=== PATIENT | male | born 1955 | race Asian ===

== ENCOUNTER 2024-12-24 18:37 | Emergency (ER) | payer MEDICARE, SELFPAY ==
[2024-12-24 18:39] VITALS: BP 155/92; PULSE 90; RESP 18; TEMP 36.5; O2SAT 99; BMI 21.6
--- NOTE | 2024-12-24 19:01 | EDS_ITS ---
HPI History of Present Illness Chief Complaint: Complaint Narrative Narrative: Patient is a 69-year-old male presenting emergency department for urinary retention. 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 Patient and daughter feel comfortable with daughter translating for him. Patient was recently started on prednisone for his knee per daughter. His last normal urination was yesterday in the late afternoon. After he took the prednisone he could not urinate other than a few dribbles. States that he is having suprapubic discomfort. Denies this ever happening in the past. Denies fever, chills, nausea, vomiting. When he was urinating normally he had no dysuria or hematuria. PFSH PFSH Home Medications ?Medication ?Instructions ?Recorded ?Last Taken ?Type naproxen 500 mg tablet 500 mg PO BID PRN PRN pain 0 12/24/24 Unknown History prednisone 10 mg tablet mg PO 12/24/24 Unknown Histo ry Allergy/AdvReac Type Severity Reaction Status Date / Time No Known Allergies Allergy Verified 12/24/24 18:39 Social History Smoking Status: Never smoker ROS ROS ED ROS Narrative see HPI EXAM Physical Exam Narrative Exam Narrative: Vital signs: Reviewed General: Alert and oriented. No acute distress HEENT: Head is normocephalic and atraumatic, sinuses nontender, pupils equal round and reactive. Nares are patent. Oropharynx and throat exams normal. Neck: Supple without lymphadenopathy nontender Cardiovascular: Regular rate and rhythm, no murmurs. No rubs or gallops. Normal S1 and S2 Respiratory: Clear to auscultation bilaterally. No wheezes, rales, rhonchi Abdominal: Suprapubic fullness felt, tender over this area. Otherwise, soft and nontender. Normal bowel sounds. No guarding or rebound. Nonsurgical abdomen Extremities: No tenderness. No bruising. Normal range of motion. Normal sensation. Skin: No rash or redness. Neurological: Cranial nerves II through XII are grossly intact. Normal strength and sensation. Normal cerebellar function The rest of the physical exam is unremarkable Const Vital Signs: 12/24/24 18:39 12/24/24 21:21 Temperature 97.7 F L 97 F L Temperature Source Temporal Pulse Rate 90 84 Respiratory Rate 18 18 Blood Pressure 155/92 H 142/80 H Blood Pressure Mean 113 100 Pulse Ox 99 99 Oxygen Delivery Method Room Air MDM MDM MDM Narrative Medical decision making narrative: Patient is a 69-year-old male presenting to emergency department for urinary retention. Patient was seen and examined. Vitals are stable. Patient resting bed comfortably in acute distress. Bladder scan was done by nursing staff, shows 650 ml. Discussed Ascencio catheter placement with patient. He is agreeable. This was placed by nursing staff. Urinalysis ordered, shows no evidence of infection. Patient likely had retention secondary to the prednisone use. He states he was taking this for some knee pain. He does not have any back pain, bowel retention or incontinence, numbness or weakness in his legs, fevers or chills. I recommended that he stop the prednisone. I gave him urology follow-up given the urinary retention and Ascencio catheter placement. Patient discharged from the Emergency Department. I do not feel that the patient's evaluation reveals any acute reason for admission at this time. I instructed them to either follow-up with their primary care physician or promptly return to the Emergency Department for reevaluation should symptoms worsen or new symptoms develop. I explained what symptoms would indicate the need to return to the emergency department. Shared decision making was used. The patient voiced understanding of the treatment plan and is agreeable with it. Clinical impression: Urinary retention History & Record Review Discussion w/independent historian: Patient and Family Lab Data Attestation: I reviewed the patient's lab results. Labs: Laboratory Results - last 24 hr 12/24/24 20:12 Urine Color Yellow Urine Clarity Clear Urine pH 6.5 Ur Specific [place] 1.015 Urine Protein 30 H Urine Glucose (UA) 50 H Urine Ketones Negative Urine Occult Blood 10 H Urine Nitrite Negative Urine Bilirubin Negative Urine Urobilinogen Normal Ur Leukocyte Esterase Negative Urine RBC 0-5 SEEN Urine WBC 0-5 SEEN Ur Squamous Epith Cells 0-5 SEEN Urine Bacteria 0 SEEN Urine Mucus 0 SEEN Discharge Plan Triage Chief Complaint: Complaint ED Provider: Geraldine Viera Dx/Rx/DC Orders Clinical Impression: Acute urinary retention Instructions: Leg Bag Care Dc, Ascencio Catheter Male Ch, ED Ascencio Catheter, Care Prescriptions: No Action prednisone 10 mg tablet PO naproxen 500 mg tablet 500 mg PO BID PRN PRN (Reason: pain) Primary Care Provider: Care Physician,No Primary Referrals: Sohan Rm MD [Med Staff - Active Staff] - 2 Days Care Physician,No Primary [Primary Care Provider] - Activity Restrictions/Additional Instructions: Follow up with the urologist below as soon as possible for the urinary retention. Stop taking the prednisone for your knee. Your evaluation in the Emergency Department did not reveal any acute reason for admission. However, I want to emphasize that you may be early in the course of a disease process or illness even if it is not present. For this reason you should follow-up within 24 hours for reevaluation with either your primary care physician or if necessary back here in the Emergency Department. You should return to the Emergency Department immediately if your symptoms worsen or new symptoms develop. Print Language: Congolese Disposition Disposition: Home, Self Care Discharge Date/Time: 12/24/24 21:28
[2024-12-24 20:34] LABS: Mucous, Urine 0 SEEN /hpf (<or=2+)
[2024-12-24 20:44] LABS: Color, Urine Yellow (Yellow); Glucose, Dipstick 50 mg/dl (Normal); Ketone-Dipstick Negative (Negative); Leukocyte Esterase-Dipstick Negative /ul (Negative); Nitrite-Dipstick Negative (Negative); Occult Blood-Urine 10 /ul (Negative); Protein-Dipstick 30 mg/dl (Negative); Specific Gravity, Urine 1.015 (1.002-1.030); Urine Bilirubin Dipstick Negative (Negative)
[2024-12-24 21:21] VITALS: BP 142/80; PULSE 84; RESP 18; TEMP 36.1; O2SAT 99
[2024-12-24 22:04] LABS: Red Blood Cells-Urine 0-5 SEEN /hpf (0-5); Squamous Epithelial Cells - UA 0-5 SEEN /hpf (0-5)
== END 2024-12-24 21:28 | disposition home or self-care (01) ==
PROVIDERS: Emergency Provider Student in an Organized Health Care Education/Training Program; Visit Provider Student in an Organized Health Care Education/Training Program
DX: R33.0 Drug induced retention of urine (principal); T38.0X5A Adverse effect of glucocorticoids and synthetic analogues, initial encounter
CPT/HCPCS: 51702; 81001; 99283

== ENCOUNTER 2024-12-27 19:52 | Emergency (ER) | payer MEDICARE, SELFPAY ==
[2024-12-27 19:52] VITALS: BP 171/103; PULSE 93; RESP 18; TEMP 36.6; O2SAT 98; BMI 20.9
--- OUTSIDE RECORDS SUMMARY | 2024-12-27 21:11 | XMS RPT_ITS | CCD ---
Author Organization [facility] Inform ion Partnership [facility] Care Team Providers [employer] Supervisor Name Role Phone Luisa Buchanan MD Primary Care Provider Daniel Coleman APRN.CNP Unavailable [phone] Dr. Geraldine Viera MD Emergency Provider Unavailab le Care Physician, No Primary Primary Care Provider Unavailable RENA KAY Referring Unavailable DEANGELO BARLOW Attending Unavailable LUISA BUCHANAN Primary Care Unavailable DEANGELO BARLOW Referring Unavailable LUISA BUCHANAN Primary Care Unavailable LUISA BUCHANAN Primary Care Unavailable EZEQUIEL HERNANDEZ Attending Unavailable RENA KAY Attending Unavailable RENA KYA Referring Unavailable Geraldine Viera Attending Unavailable Care Physician, No Primary Primary Care Unava ilable Medications Current Medications Medication Drug Class(es) Dates Sig (Normalized) Sig (Original) naproxen 500 mg oral tablet (4 sources) Nonsteroidal Anti-inflammatory Drug Start: 12-16-2024 take 1 tablet by mouth twice daily as needed for pain naproxen (NAPROSYN) 500 mg tablet Indications: Bilateral chronic knee pain , Chronic pain of both shoulders Take 1 tablet by mouth two times a day as needed (FOR PAIN - TAKE WITH FOOD.) for up to 20 doses. 20 tablet 12/16/2024 Active predniSONE 10 mg oral tablet (4 sources) Start: 12-24-2024 Prednisone 10 mg tablet Active mg PO December 24, 2024 12:00am Start: 12-23-2024 End: 01-07-2025 predniSONE (DELTASONE) 10 mg tablet Take 4 tabs daily x5 days, then 2 tabs daily for 5 days, then 1 tab daily for 5 days. 35 tablet 12/23/2024 01/07/2025 Active Problems Active Problems Problem Classification Problem Date Documented Date Episodic/Chronic Cataract (3 sources) Senile combined form cataract of right eye; Translations: [Combined forms of age-related cataract, right eye] Onset: 01-28-2021 01-28-2021 Chronic Genitourinary symptoms and ill-defined conditions (3 sources) Acute retention of urine ; Translations: [Other retention of urine] Onset: 12-24-2024 12-24-2024 Episodic Inflammation; infection of eye (except that caused by tuberculosis or sexually transmitteddisease) (3 sources) Bilateral punctate keratitis of eyes; Translations: [Punctate keratitis, bilateral] Onset: 01-28-2021 01-28-2021 Chronic Osteoarthritis (4 sources) Osteoarthritis of left knee joint; Translations: [Unilateral primary osteoarthritis, left knee] Onset: 12-23-2024 12-23-2024 Chronic Other eye disorders (3 sources) Optic cupping; Translations: [Glaucomatous optic atrophy, bilateral] Onset: 01-28-2021 01-28-2021 Chronic Other nervous system disorders (3 sources) Other chronic pain; Translations: [Chronic left shoulder pain] Onset: 12-16-2024 Chronic Other non-traumatic joint disorders (1 source) Multiple joint pain; Translations: [Pain in unspecified joint] 12-23-2024 Episodic Other non-traumatic joint disorders (1 source) Chronic pain of left upper limb; Translations: [Pain in left shoulder] 12-23-2024 Episodic Other non-traumatic joint disorders (1 source) Swelling of upper limb; Translations: [Effusion, left wrist] 12-23-2024 Episodic Other non-traumatic joint disorders (1 source) Pain in unspecified joint; Translations: [Polyarthralgia] Onset: 12-23-2024 Episodic Other non-traumatic joint disorders (2 sources) Pain in left shoulder; Translations: [Chronic left shoulder pain] Onset: 12-16-2024 Episodic Other non-traumatic joint disorders (1 source) Effusion, left wrist; Translations: [Swelling of left wrist] Onset: 12-23-2024 Episodic Other non-traumatic joint disorders (1 source) Pain in right knee; Translations: [Bilateral chronic knee pain] Onset: 12-16-2024 Episodic Other non-traumatic joint disorders (1 source) Pain in left knee; Translations: [Bilateral chronic knee pain] Onset: 12-16-2024 Episodic Other non-traumatic joint disorders (1 source) Pain in right shoulder; Translations: [Chronic pain of both shoulders] Onset: 12-16-2024 Episodic Past or Other Problems Problem Classification Problem Date Documented Da te Episodic/Chronic Other eye disorders (3 sources) H/O: L cataract extraction; Translations: [Cataract extraction status, left eye] Onset: 01-28-2021 01-28-2021 Episodic Results Test Name Value Interpretation Reference Range Facility Bilirubin Test strip Ql (U)O rdered By: Geraldine Viera on 12-24-2024 Bilirubin Ql (U) Negative Negative [facility] CNOVon 12-24-2024 CNOV Office Visit ([facility]) ----- RASHEL HAYDEN ([id number]) 1955 [facility] Date Time Provider Department 12/24/24 6:30 PM EZEQUIEL HERNANDEZ During your visit today, we recorded the following information about you: Ezequiel Hernandez PA-C 12/24/2024 6:40 PM Signed [facility] Subjective Rashel Hayden is a 69 year old male. No chief complaint on file. HPI Oliguria: - Onset last night after taking a new medication. - Nocturia with minimal urine output around 0200 and 0400. - Minimal urine output during three attempts today. - Denies previous episodes or history of urethral stricture. - Denies emesis or cough. - Reports throat discomfort. Patient's Czech is limited. Per his daughter, he began taking prednisone last night as prescribed. He was unable to urinate except for a few drops last night and throughout the day today. Patient presents with moderate bladder distention and discomfort at this time. Review of Systems Ears/Nose/Mouth/Throat: (+) throat pain Respiratory: (-) cough Gastrointestinal: (-) vomiting Genitourinary: (+) decreased urine output Objective There were no vitals taken for this visit. Physical Exam General: No acute distress. CV: Regular rate and rhythm. Resp: Lungs clear to auscultation bilaterally. Abd: Bowel sounds present; bladder distention noted on palpation. 1. Urinary retention (R33.9) - Acute urinary retention following administration of a new medication last night; no prior history of urinary retention or urethral stricture. - Exam notable for bladder distention. - Advised immediate transfer to the emergency department for catheterization and bladder decompression. - Instructed to discontinue the recently started medication. - Explained that this condition is generally reversible and may be related to medication-induced urethral spasm. - Discussed likely need for urology follow-up after ED management. - Stop taking the medication you received last night that likely caused your urine retention. - Go to the emergency department immediately for a urinary catheter to drain your bladder. - After bladder drainage, arrange a follow-up appointment with a urologist to evaluate your urinary retention and plan further care. I have advised this patient and his daughter to proceed to the emergency department immediately. MDM Procedures Allergies As of Date: 12/24/2024 (Not on File) Date Reviewed: 12/23/2024 Reviewed by: Dominga Izaguirre MA - Fully Assessed Visit Diagnosis:Urinary retention [R33.9] Prescriptions as of 12/24/2024 - predniSONE (DELTASONE) 10 mg tablet Take 4 tabs daily x5 days, then 2 tabs daily for 5 days, then 1 tab daily for 5 days. - naproxen (NAPROSYN) 500 mg tablet Take 1 tablet by mouth two times a day as needed (FOR PAIN - TAKE WITH FOOD.) for up to 20 doses. 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] 01/28/2021 Punctate keratitis of both eyes [H16.143] 01/28/2021 Level of Service: OFFICE/OUTPATIENT ESTABLISHED [facility] 30 MIN [90403] Encounter Status:Closed by EZEQUIEL HERNANDEZ on 12/24/24 [facility] Emergency Department Summary on 12-24-2024 Emergency Department Summary [facility] Medical Records Department [address] [place] [address] Emergency Department Summary 12/24/24 MR#: [id number] Acct: [id number] Name: RASHEL HAYDEN Rep #: [id number] : 1955 69 From: Geraldine Viera MD PCP: Care Physician,No Primary Status:DEP ER Location: ED HPI History of Present Illness Chief Complaint: Complaint Narrative Narrative: Patient is a 69-year-old male presenting emergency department for urinary retention. He is non- Czech speaking, wallpaper scraper was offered. Patient and daughter feel comfortable with daughter translating for him. Patient was recently started on prednisone for his knee per daughter. His last normal urination was yesterday in the late afternoon. After he took the prednisone he could not urinate other than a few dribbles. States that he is having suprapubic discomfort. Denies this ever happening in the past. Denies fever, chills, nausea, vomiting. When he was urinating normally he had no dysuria or hematuria. PFSH PFSH Home Medications ???Medication ???Instructions ???Recorded ???Last Taken ???Type naproxen 500 mg tablet 500 mg PO BID PRN PRN pain 5 Unknown History prednisone 10 mg tablet mg PO 12/24/24 Unknown History Allergy/AdvReac Type Severity Reaction Status Date / Time No Known Allergies Allergy Verified 12/24/24 18:39 Social History Smoking Status: Never smoker ROS ROS ED ROS Narrative see HPI EXAM Physical Exam Narrative Exam Narrative: Vital signs: Reviewed General: Alert and oriented. No acute distress HEENT: Head is normocephalic and atraumatic, sinuses nontender, pupils equal round and reactive. Nares are patent. Oropharynx and throat exams normal. Neck: Supple without lymphadenopathy nontender Cardiovascular: Regular rate and rhythm, no murmurs. No rubs or gallops. Normal S1 and S2 Respiratory: Clear to auscultation bilaterally. No wheezes, rales, rhonchi Abdominal: Suprapubic fullness felt, tender over this area. Otherwise, soft and nontender. Normal bowel sounds. No guarding or rebound. Nonsurgical abdomen Extremities: No tenderness. No bruising. Normal range of motion. Normal sensation. Skin: No rash or redness. Neurological: Cranial nerves II through XII are grossly intact. Normal strength and sensation. Normal cerebellar function The rest of the physical exam is unremarkable Const Vital Signs: 12/24/24 18:39 12/24/24 21:21 Temperature 97.7 F L 97 F L Temperature Source Temporal Pulse Rate 90 84 Respiratory Rate 18 18 Blood Pressure 155/92 H 142/80 H Blood Pressure Mean 113 100 Pulse Ox 99 99 Oxygen Delivery Method Room Air MDM MDM MDM Narrative Medical decision making narrative: Patient is a 69-year-old male presenting to emergency department for urinary retention. Patient was seen and examined. Vitals are stable. Patient resting bed comfortably in acute distress. Bladder scan was done by nursing staff, shows 650 ml. Discussed Ascencio catheter placement with patient. He is agreeable. This was placed by nursing staff. Urinalysis ordered, shows no evidence of infection. Patient likely had retention secondary to the prednisone use. He states he was taking this for some knee pain. He does not have any back pain, bowel retention or incontinence, numbness or weakness in his legs, fevers or chills. I recommended that he stop the prednisone. I gave him urology follow-up given the urinary retention and Ascencio catheter placement. Patient discharged from the Emergency Department. I do not feel that the patient's evaluation reveals any acute reason for admission at this time. I instructed them to either follow-up with their primary care physician or promptly return to the Emergency Department for reevaluation should symptoms worsen or new symptoms develop. I explained what symptoms would indicate the need to return to the emergency department. Shared decision making was used. The patient voiced understanding of the treatment plan and is agreeable with it. Clinical impression: Urinary retention History Record Review Discussion w/independent historian: Patient and Family Lab Data Attestation: I reviewed the patient's lab results. Labs: Laboratory Results - last 24 hr 12/24/24 20:12 Urine Color Yellow Urine Clarity Clear Urine pH 6.5 Ur Specific [place] 1.015 Urine Protein 30 H Urine Glucose (UA) 50 H Urine Ketones Negative Urine Occult Blood 10 H Urine Nitrite Negative Urine Bilirubin Negative Urine Urobilinogen Normal Ur Leukocyte Esterase Negative Urine RBC 0-5 SEEN Urine WBC 0-5 SEEN Ur Squamous Epith Cells 0-5 SEEN Urine Bacteria 0 SEEN Urine Mucus 0 SEEN Discharge Plan Triage Chief Complain (more content not included)... Normal [facility] Ketones Test strip Ql (U)Ord ered By: Geraldine Viera on 12-24-2024 Ketones Ql (U) Negative Negative [facility] Nitrite Test strip Ql (U)Ord ered By: Geraldine Viera on 12-24-2024 Nitrite Ql (U) Negative Negative [facility] Protein Test strip Ql (U)Ord ered By: Geraldine Viera on 12-24-2024 Protein Ql (U) 30 mg/dl High Negative [facility] Urinalysis, Completeon 12-24 EPI,SQUAMOUS 0-5 SEEN Normal 0-5 [facility] Comment on above: Order Comment: SKY CTOR TO SPECIFY Performed By: #### L 400.0001 #### [facility] [address] [place], [address] RBC 0-5 SEEN Normal 0-5 [facility] Comment on above: Order Comment: SKY CTOR TO SPECIFY Performed By: #### L 400.0001 #### [facility] [address] [place], [address] WBC 0-5 SEEN Normal 0-5 [facility] Comment on above: Order Comment: SYK CTOR TO SPECIFY Performed By: #### L 400.0001 #### [facility] [address] [place], [address] BACTERIA 0 SEEN Normal None Seen [facility] Comment on above: Order Comment: SKY CTOR TO SPECIFY Performed By: #### L 400.0001 #### [facility] [address] [place], [address] Mucus Ql (Urine sed) 0 SEEN Normal [facility] Comment on above: Order Comment: SKY CTOR TO SPECIFY Performed By: #### L 400.0001 #### [facility] [address] [place], [address] Urine clarityOrdered By: Sue Viera on 12-24-2024 Clarity (U) Clear Clear [facility] Urine color determinationOrd ered By: Geraldine Viera on 12-24-2024 Color (U) Yellow Yellow [facility] Urine glucose detectionOrder ed By: Geraldine Viera on 12-24-2024 Glucose Ql (U) 50 mg/dl High Normal [facility] Urine leukocyte esterase det ection by dipstickOrdered By: Geraldine Viera on 12-24-2024 Leukocyte esterase Test strip Ql (U) Negative Negative [facility] Urine pHOrdered By: Geraldine schultz on 12-24-2024 pH (U) 6.5 [pH] 5.0 - 8.0 [facility] Urine specific gravity measu rementOrdered By: Geraldine Viera on 12-24-2024 Specific gravity (U) [Rel density] 1.015 1.002-1.030 [facility] Urine urobilinogen measureme ntOrdered By: Geraldine Viera on 12-24-2024 Urobilinogen Ql (U) Normal mg/dl Normal [facility] CBC W Auto Differential pane l (Bld)on 12-23-2024 Basophils (Bld) [#/Vol] [facility] Basophils/100 WBC (Bld) 0.3 % C [facility] Differential cell count method Nom (Bld) Auto [facility] Eosinophils (Bld) [#/Vol] 0.89 10*3/uL High [facility] Eosinophils/100 WBC (Bld) 14.1 % [facility] Erythrocyte distribution width (RBC) [Ratio] 12.7 % 11.5 - 15.0 % [facility] Hematocrit (Bld) [Volume fraction] 37.6 % Low 39.0 - 51.0 % [facility] Hemoglobin (Bld) [Mass/Vol] 13.0 g/dL 13.0 - 17.0 g/dL [facility] Immature granulocytes (Bld) [#/Vol] 0.04 10*3/uL [facility] Immature granulocytes/100 WBC (Bld) 0.6 % [facility] Interpretation and review of laboratory results Abnormal [facility] Lymphocytes (Bld) [#/Vol] 0.93 10*3/uL Low [facility] Lymphocytes/100 WBC (Bld) 14.7 % [facility] MCH (RBC) [Entitic mass] 31.6 pg 26.0 - 34.0 pg [facility] MCHC (RBC) [Mass/Vol] 34.6 g/dL 30.5 - 36.0 g/dL [facility] MCV (RBC) [Entitic vol] 91.3 fL 80.0 - 100.0 fL [facility] Monocytes (Bld) [#/Vol] 0.41 10*3/uL [facility] Monocytes/100 WBC (Bld) 6.5 % [facility] Neutrophils (Bld) [#/Vol] 4.03 10*3/uL [facility] Neutrophils/100 WBC (Bld) 63.8 % [facility] Nucleated RBC (Bld) [#/Vol] NINF [facility] Nucleated RBC/100 WBC (Bld) [Ratio] 0.0 % /100 WBC [facility] Platelet mean volume (Bld) [Entitic vol] 8.4 fL Low 9.0 - 12.7 fL [facility] Platelets (Bld) [#/Vol] 290 10*3/uL [facility] RBC (Bld) [#/Vol] 4.12 10*6/uL Low 4.20 - 6.0 0 m/uL [facility] WBC (Bld) [#/Vol] 6.32 10*3/uL [facility] Basophils (Bld) [#/Vol] 10*3/uL Normal <0.11 [facility] Comment on above: Order Comment: Speci men Type: BLOOD SPECIMEN Ordering Facility: [facility] Address: [address] [place] [address] Performed By: #### 5 7021-8 #### [facility] CLIA [id number] [address] [place] [address] [place] Basophils/100 WBC (Bld) 0.3 % Normal [facility] Comment on above: Order Comment: Speci men Type: BLOOD SPECIMEN Ordering Facility: [facility] Address: [address] [place] [address] Performed By: #### 5 7021-8 #### [facility] CLIA [id number] [address] [place] [address] [place] Differential cell count method Nom (Bld) Auto Normal [facility] Comment on above: Order Comment: Speci men Type: BLOOD SPECIMEN Ordering Facility: [facility] Address: [address] [place] [address] Performed By: #### 5 7021-8 #### [facility] CLIA [id number] [address] [place] [address] [place] Eosinophils (Bld) [#/Vol] 0.89 10*3/uL High <0.46 [facility] Comment on above: Order Comment: Speci men Type: BLOOD SPECIMEN Ordering Facility: [facility] Address: [address] [place] [address] Performed By: #### 5 7021-8 #### [facility] CLIA [id number] [address] [place] [address] [place] Eosinophils/100 WBC (Bld) 14.1 % Normal [facility] Comment on above: Order Comment: Speci men Type: BLOOD SPECIMEN Ordering Facility: [facility] Address: [address] [place] [address] Performed By: #### 5 7021-8 #### [facility] CLIA [id number] [address] [place] [address] [place] Erythrocyte distribution width (RBC) [Ratio] 12.7 % Normal 11.5-15.0 [facility] Comment on above: Order Comment: Speci men Type: BLOOD SPECIMEN Ordering Facility: [facility] Address: [address] [place] [address] Performed By: #### 5 7021-8 #### [facility] CLIA [id number] [address] [place] [address] [place] Hematocrit (Bld) [Volume fraction] 37.6 % Low 39.0-51.0 [facility] Comment on above: Order Comment: Speci men Type: BLOOD SPECIMEN Ordering Facility: [facility] Address: [address] [place] [address] Performed By: #### 5 7021-8 #### [facility] CLIA [id number] [address] [place] [address] [place] Hemoglobin (Bld) [Mass/Vol] 13.0 g/dL Normal 13.0-17.0 [facility] Comment on above: Order Comment: Speci men Type: BLOOD SPECIMEN Ordering Facility: [facility] Address: [address] [place], [place] [address] Performed By: #### 5 7021-8 #### [facility] CLIA [id number] [address] [place] [address] [place] Immature granulocytes (Bld) [#/Vol] 0.04 10*3/uL Normal <0.10 [facility] Comment on above: Order Comment: Speci men Type: BLOOD SPECIMEN Ordering Facility: [facility] Address: [address] [place], [place] [address] Performed By: #### 5 7021-8 #### [facility] CLIA [id number] [address] [place] [address] [place] Immature granulocytes/100 WBC (Bld) 0.6 % Normal [facility] Comment on above: Order Comment: Speci men Type: BLOOD SPECIMEN Ordering Facility: [facility] Address: [address] [place] [address] Performed By: #### 5 7021-8 #### [facility] CLIA [id number] [address] [place] [address] [place] Lymphocytes (Bld) [#/Vol] 0.93 10*3/uL Low 1.00-4.00 [facility] Comment on above: Order Comment: Speci men Type: BLOOD SPECIMEN Ordering Facility: [facility] Address: [address] [place] [address] Performed By: #### 5 7021-8 #### [facility] CLIA [id number] [address] [place] [address] [place] Lymphocytes/100 WBC (Bld) 14.7 % Normal [facility] Comment on above: Order Comment: Speci men Type: BLOOD SPECIMEN Ordering Facility: [facility] Address: [address] [place] [address] Performed By: #### 5 7021-8 #### [facility] CLIA [id number] [address] [place] [address] [place] MCH (RBC) [Entitic mass] 31.6 pg Normal 26.0-34.0 [facility] Comment on above: Order Comment: Speci men Type: BLOOD SPECIMEN Ordering Facility: [facility] Address: [address] [place] [address] Performed By: #### 5 7021-8 #### [facility] CLIA [id number] [address] [place] [address] [place] MCHC (RBC) [Mass/Vol] 34.6 g/dL Normal 30.5-36.0 [facility] Comment on above: Order Comment: Speci men Type: BLOOD SPECIMEN Ordering Facility: [facility] Address: [address] [place] [address] Performed By: #### 5 7021-8 #### [facility] CLIA [id number] [address] [place] [address] [place] MCV (RBC) [Entitic vol] 91.3 fL Normal 80.0-100.0 C [facility] Comment on above: Order Comment: Speci men Type: BLOOD SPECIMEN Ordering Facility: [facility] Address: [address] [place] [address] Performed By: #### 5 7021-8 #### [facility] CLIA [id number] [address] [place] [address] [place] Monocytes (Bld) [#/Vol] 0.41 10*3/uL Normal <0.87 [facility] Comment on above: Order Comment: Speci men Type: BLOOD SPECIMEN Ordering Facility: [facility] Address: [address] [place] [address] Performed By: #### 5 7021-8 #### [facility] CLIA [id number] [address] [place] [address] [place] Monocytes/100 WBC (Bld) 6.5 % Normal [facility] Comment on above: Order Comment: Speci men Type: BLOOD SPECIMEN Ordering Facility: [facility] Address: [address] [place] [id number] Performed By: #### 5 7021-8 #### [facility] CLIA [id number] [address] [place] [address] [place] Neutrophils (Bld) [#/Vol] 4.03 10*3/uL Normal 1.45-7.50 [facility] Comment on above: Order Comment: Speci men Type: BLOOD SPECIMEN Ordering Facility: [facility] Address: [address] [place] [address] Performed By: #### 5 7021-8 #### [facility] CLIA [id number] [address] [place] [address] [place] Neutrophils/100 WBC (Bld) 63.8 % Normal [facility] Comment on above: Order Comment: Speci men Type: BLOOD SPECIMEN Ordering Facility: [facility] Address: [address] [place] [address] Performed By: #### 5 7021-8 #### [facility] CLIA [id number] [address] [place] [address] [place] Nucleated RBC (Bld) [#/Vol] 10*3/uL Normal <0.01 [facility] Comment on above: Order Comment: Speci men Type: BLOOD SPECIMEN Ordering Facility: [facility] Address: [address] [place] [address] Performed By: #### 5 7021-8 #### [facility] CLIA [id number] [address] [place] [address] [place] Nucleated RBC/100 WBC (Bld) [Ratio] 0.0 /100 WBC Normal [facility] Comment on above: Order Comment: Speci men Type: BLOOD SPECIMEN Ordering Facility: [facility] Address: [address] [place] [address] Performed By: #### 5 7021-8 #### [facility] CLIA [id number] [address] [place] [address] [place] Platelet mean volume (Bld) [Entitic vol] 8.4 fL Low 9.0-12.7 [facility] Comment on above: Order Comment: Speci men Type: BLOOD SPECIMEN Ordering Facility: [facility] Address: [address] [place] [address] Performed By: #### 5 7021-8 #### [facility] [id number] [address] [place] [address] [place] Platelets (Bld) [#/Vol] 290 10*3/uL Normal 150-400 [facility] Comment on above: Order Comment: Speci men Type: BLOOD SPECIMEN Ordering Facility: [facility] Address: [address] [place] [address] Performed By: #### 5 7021-8 #### [facility] [id number] [address] [place] [address] [place] RBC (Bld) [#/Vol] 4.12 10*6/uL Low 4.20-6.00 [facility] Comment on above: Order Comment: Speci men Type: BLOOD SPECIMEN Ordering Facility: [facility] Address: [address] [place] [address] Performed By: #### 5 7021-8 #### [facility] CLIA [id number] [address] [place] [address] [place] WBC (Bld) [#/Vol] 6.32 10*3/uL Normal 3.70-11.00 [facility] Comment on above: Order Comment: Speci men Type: BLOOD SPECIMEN Ordering Facility: [facility] Address: [address] [place] [address] Performed By: #### 5 7021-8 #### [facility] CLIA [id number] [address] [place], [place] [id number] [place] [address] OF [facility] CNOVon 12-23-2024 CNOV Office Visit (FRFHWS ) ----- RASHEL HAYDEN ([id number]) 1955 M [facility] Date Time Provider Department 12/23/24 2:00 PM DEANGELO DUNN V [facility] During your visit today, we recorded the following information about you: Dominga Izaguirre MA 12/23/2024 2:29 PM Signed Patient presents with: Bilateral Knee Pain: Referred by Rena Kay [facility] ROOMING INTAKE FLOWSHEET DATA Pain Pain Level: 10 Pain Location: (Bilateral knees) Description: Radiating Duration Amount of Time: 2 Duration Units: Months Frequency: Continuous Intervention/Comfort measure: Medication Daughter with patient today and interpreting. Deangelo Dunn V, DO 12/23/2024 2:29 PM Signed Subjective The patient is a 69-year-old male, accompanied by his daughter who is providing history on his behalf, presenting for evaluation of chronic knee pain. Knee Pain: - Chronic knee pain x3-4 years, previously mild but significantly worsened in the last month. - Pain is diffuse, described as all around the knee and radiating down the leg. - Recent swelling noted in the knee. - X-ray showed some arthritis, but no fractures or dislocations. - Denies known trauma. Polyarthralgia: - Reports pain in shoulders, wrists, and ribs. - Notable swelling in the left wrist. - Left hand weakness, difficulty holding objects. - Limited mobility; primarily sedentary, with minimal walking. Musculoskeletal: (+) knee pain, (+) knee swelling, (+) left wrist pain, (+) left wrist swelling, (+) shoulder pain, (+) left hand weakness Objective There were no vitals taken for this visit. General: No acute distress. MSK/Ext: Left wrist swelling, left wrist weakness, bilateral knee pain, mild knee pain with lateral Kee test, no pain with Joel test, crepitus in knee joint, left knee swelling, left knee swelling greater than right knee, left knee tenderness, left knee joint stable, no knee joint warmth. Imaging: - X-ray of the knee: Mild degenerative changes consistent with arthritis, no fracture or dislocation. Assessment AND Plan 1. Polyarthralgia (M25.50) 2. Primary osteoarthritis of left knee (M17.12) 3. Chronic left shoulder pain (M25.512) 4. Swelling of left wrist (M25.432) 5. Generalized osteoarthritis (M15.9) - Chronic knee pain with recent worsening; X-ray shows mild arthritis, but not sufficient to explain severity of symptoms. - Multiple joint involvement (shoulders, wrists, knees, ankles) with swelling and pain; left wrist swelling more pronounced than right. - Differential includes inflammatory arthritis such as rheumatoid arthritis. - Ordered blood tests to evaluate for systemic inflammatory arthritis. - Start prednisone: 4 tablets daily for 5 days, then 2 tablets daily for 5 days, then 1 tablet daily for 5 days. - Educated on prednisone taper schedule and its role in reducing inflammation and swelling while awaiting lab results. - Encouraged increased physical activity and walking as tolerated. - Will call with lab results when available. Recording using [employer] software for draft documentation of the visit was discussed with the patient/authorized employee representative; all questions welcomed and answered. Patient/authorized employee representative agreed to proceed Referring Provider: RENA KAY [[id number]] Allergies As of Date: 12/23/2024 (Not on File) Date Reviewed: 12/23/2024 Reviewed by: Dominga Izaguirre MA - Fully Assessed Reason for Visit: Bilateral Knee Pain [1210] Cmt: Referred by Rena Kay Primary Visit Diagnosis:Polyarthralgia [M25.50] Other Visit Diagnoses:Primary osteoarthritis of left knee [M17.12] Chronic left shoulder pain [M25.512, G89.29] Swelling of left wrist [M25.432] Generalized osteoarthritis [M15.9] Order(s):CONSULT PANEL TO ORTHOPAEDICS [437497] Order #: [id number]: 1 COMPLETE BLOOD COUNT AND DIFFERENTIAL [SQCBCDIF] Order #: [id number] FUTURE SEDIMENTATION RATE, WESTERGREN [SQWSR] Order #: [id number] FUTURE C-REACTIVE PROTEIN [SQCRP] Order #: [id number] FUTURE KIERAN BLOOD [SQANAS] Order #: [id number] FUTURE RHEUMATOID FACTOR [SQRF] Order #: [id number] FUTURE COMPREHENSIVE METABOLIC PANEL [SQCMP] Order #: [id number] FUTURE predniSONE (DELTASONE) 10 mg tabletTake 4 tabs daily x5 days, then 2 tabs daily for 5 days, then 1 tab daily for 5 days.Disp: 35 tabletRfl: 0 Prescriptions as of 12/23/2024 - predniSONE (DELTASONE) 10 mg tablet Take 4 tabs daily x5 days, then 2 tabs daily for 5 days, then 1 tab daily for 5 days. - naproxen (NAPROSYN) 500 mg tablet Take 1 tablet by mouth two times a day as needed (FOR PAIN - TAKE WITH FOOD.) for up to 20 doses. 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 Normal [facility] CRP SerPl-mCncon 12-23-2024 CRP [Mass/Vol] 2.5 mg/dL High <0.9 [facility] Comment on above: Order Comment: Speci men Type: BLOOD SPECIMEN [facility] Facility: [facility] Address: [address] [place] [address] Performed By: #### 1 988-5, 15349-1 #### [facility] CLIA [id number] [address] [place] [address] STATES OF [facility] Comprehensive metabolic 2000 panelOrdered By: Belinda Dillard on 12-23-2024 Albumin [Mass/Vol] 3.8 g/dL Low 3.9 - 4.9 g/dL [facility] ALP [Catalytic activity/Vol] 84 U/L 38 - 113 U/L [facility] ALT [Catalytic activity/Vol] 13 U/L 10 - 54 U/L [facility] Anion gap [Moles/Vol] 9 mmol/L 8 - 15 mmol/L [facility] AST [Catalytic activity/Vol] 22 U/L 14 - 40 U/L [facility] Bilirubin [Mass/Vol] 0.5 mg/dL 0.2 - 1 .3 mg/dL [facility] Calcium [Mass/Vol] 9.2 mg/dL 8.5 - 10. 2 mg/dL [facility] Chloride [Moles/Vol] 105 mmol/L 98 - 10 7 mmol/L [facility] CO2 [Moles/Vol] 25 mmol/L 22 - 30 mmol/L [facility] Creatinine [Mass/Vol] 1.33 mg/dL High 0.73 - 1.22 mg/dL [facility] GFR/1.73 sq M.predicted among non-blacks MDRD (S/P/Bld) [Vol rate/Area] 58 mL/min/{1.73_m2} Low - PINF [facility] Comment on above: Estimated Glomerular Filtration Rate (eGFR) is calculated using the 2020 CKD-EPI creatinine equation. This equation utilizes serum creatinine, sex, and age as parameters. The creatinine assay has traceable calibration to isotope dilution-mass spectrometry. Refer to KDIGO guidelines for clinical interpretation. In patients with unstable renal function, e.g. those with acute kidney injury, the eGFR may not accurately reflect actual GFR. Glucose [Mass/Vol] 120 mg/dL High 74 - 99 mg/dL [facility] Comment on above: The [place] Diabete s Association (ADA) provides guidance for cutoff values for fasting glucose and random glucose. The ADA defines fasting as no caloric intake for at least 8 hours. Fasting plasma glucose results between 100 to 125 mg/dL indicate increased risk for diabetes (prediabetes). Fasting plasma glucose results greater than or equal to 126 mg/dL meet the criteria for diagnosis of diabetes. In the absence of unequivocal hyperglycemia, results should be confirmed by repeat testing. In a patient with classic symptoms of hyperglycemia or hyperglycemic crisis, random plasma glucose results greater than or equal to 200 mg/dL meet the criteria for diagnosis of diabetes. Reference: Standards of Medical Care in Diabetes 2016, [place] Diabetes Association. Diabetes Care. 2016.39(Suppl 1). Interpretation and review of laboratory results Abnormal [facility] Potassium [Moles/Vol] 3.7 mmol/L 3.7 - 5.1 mmol/L [facility] Protein [Mass/Vol] 7.2 g/dL 6.3 - 8.0 g/dL [facility] Sodium [Moles/Vol] 139 mmol/L 136 - 144 mmol/L [facility] Urea nitrogen [Mass/Vol] 28 mg/dL High 9 - 24 mg/dL [facility] Comprehensive metabolic 2000 panelon 12-23-2024 Albumin [Mass/Vol] 3.8 g/dL Low 3.9-4.9 [facility] Comment on above: Order Comment: Gregorio man Type: BLOOD SPECIMEN [facility] Facility[facility] Address: [address] [place] [address] Performed By: #### 2 4323-8 #### [facility] [id number] [address] [place] [address] [place] ALP [Catalytic activity/Vol] 84 U/L Normal 38-113 [facility] Comment on above: Order Comment: Gregorio man Type: BLOOD SPECIMEN Ordering Facility: [facility] Address: [address] [place] [address] Performed By: #### 2 4323-8 #### [facility] CLIA [id number] [address] [place] [address] [place] ALT [Catalytic activity/Vol] 13 U/L Normal 10-54 [facility] Comment on above: Order Comment: Gregorio man Type: BLOOD SPECIMEN Ordering Facility: [facility] Address: [address] [place] [address] Performed By: #### 2 4323-8 #### [facility] CLIA [id number] [address] [place] [address] [place] Anion gap [Moles/Vol] 9 mmol/L Normal 8-15 [facility] Comment on above: Order Comment: Speci men Type: BLOOD SPECIMEN Ordering Facility: [facility] Address: [address] [place] [address] Performed By: #### 2 4323-8 #### [facility] CLIA [id number] [address] [place] [address] [place] AST [Catalytic activity/Vol] 22 U/L Normal 14-40 [facility] Comment on above: Order Comment: Speci men Type: BLOOD SPECIMEN Ordering Facility: [facility] Address: [address] [place] [address] Performed By: #### 2 4323-8 #### [facility] CLIA [id number] [address] [place] [address] [place] Bilirubin [Mass/Vol] 0.5 mg/dL Normal 0.2-1.3 [facility] Comment on above: Order Comment: Speci men Type: BLOOD SPECIMEN Ordering Facility: [facility] Address: [address] [place] [address] Performed By: #### 2 4323-8 #### [facility] CLIA [id number] [address] [place] [address] [place] Calcium [Mass/Vol] 9.2 mg/dL Normal 8.5-10.2 [facility] Comment on above: Order Comment: Speci men Type: BLOOD SPECIMEN Ordering Facility: [facility] Address: [address] [place] [address] Performed By: #### 2 4323-8 #### [facility] CLIA [id number] [address] [place] [address] [place] Chloride [Moles/Vol] 105 mmol/L Normal 98-107 [facility] Comment on above: Order Comment: Speci men Type: BLOOD SPECIMEN Ordering Facility: [facility] Address: [address] [place] [address] Performed By: #### 2 4323-8 #### [facility] CLIA [id number] [address] [place] [address] [place] CO2 [Moles/Vol] 25 mmol/L Normal 22-30 [facility] Comment on above: Order Comment: Speci men Type: BLOOD SPECIMEN Ordering Facility: [facility] Address: [address] [place] [address] Performed By: #### 2 4323-8 #### [facility] CLIA [id number] [address] [place] [address] [place] Creatinine [Mass/Vol] 1.33 mg/dL High 0.73-1.22 [facility] Comment on above: Order Comment: Speci men Type: BLOOD SPECIMEN Ordering Facility: [facility] Address: [address] [place] [address] Performed By: #### 2 4323-8 #### [facility] CLIA [id number] [address] [place] [address] [place] eGFRcr SerPlBld CKD-EPI 2020 58 mL/min/1.73m??? Low >=60 [facility] Comment on above: Order Comment: Speci men Type: BLOOD SPECIMEN Ordering Facility: [facility] Address: [address] [place] [address] Result Comment: Madeleine mated Glomerular Filtration Rate (eGFR) is calculated using the 2020 CKD-EPI creatinine equation. This equation utilizes serum creatinine, sex, and age as parameters. The creatinine assay has traceable calibration to isotope dilution-mass spectrometry. Refer to KDIGO guidelines for clinical interpretation. In patients with unstable renal function, e.g. those with acute kidney injury, the eGFR may not accurately reflect actual GFR. Performed By: #### 2 4323-8 #### [facility] CLIA [id number] [address] [place] [address] [place] Glucose [Mass/Vol] 120 mg/dL High 74-99 [facility] Comment on above: Order Comment: Gregorio man Type: BLOOD SPECIMEN Ordering Facility: [facility] Address: [address] [place] [address] Result Comment: The [place] Diabetes Association (ADA) provides guidance for cutoff values for fasting glucose and random glucose. The ADA defines fasting as no caloric intake for at least 8 hours. Fasting plasma glucose results between 100 to 125 mg/dL indicate increased risk for diabetes (prediabetes). Fasting plasma glucose results greater than or equal to 126 mg/dL meet the criteria for diagnosis of diabetes. In the absence of unequivocal hyperglycemia, results should be confirmed by repeat testing. In a patient with classic symptoms of hyperglycemia or hyperglycemic crisis, random plasma glucose results greater than or equal to 200 mg/dL meet the criteria for diagnosis of diabetes. Reference: Standards of Medical Care in Diabetes 2016, [place] Diabetes Association. Diabetes Care. 2016.39(Suppl 1). Performed By: #### 2 4323-8 #### [facility] CLIA [id number] [address] [place] [address] [place] Potassium [Moles/Vol] 3.7 mmol/L Normal 3.7-5.1 [facility] Comment on above: Order Comment: Gregorio man Type: BLOOD SPECIMEN Ordering Facility: [facility] Address: [address] [place] [address] Performed By: #### 2 4323-8 #### [facility] CLIA [id number] [address] [place] [address] [place] Protein [Mass/Vol] 7.2 g/dL Normal 6.3-8.0 [facility] Comment on above: Order Comment: Gregorio man Type: BLOOD SPECIMEN Order[facility] Facility: [facility] Address: [address] [place] [address] Performed By: #### 2 4323-8 #### [facility] CLIA [id number] [address] [place] [address] [place] Sodium [Moles/Vol] 139 mmol/L Normal 136-144 [facility] Comment on above: Order Comment: Speci men Type: BLOOD SPECIMEN Ordering Facility: [facility] Address: [address] [place] [address] Performed By: #### 2 4323-8 #### [facility] CLIA [id number] [address] [place] [address] [place] Urea nitrogen [Mass/Vol] 28 mg/dL High 9-24 [facility] Comment on above: Order Comment: Speci men Type: BLOOD SPECIMEN Ordering Facility: [facility] Address: [address] [place] [address] Performed By: #### 2 4323-8 #### [facility] CLIA [id number] [address] [place] [address] [place] ESR Westergren method (Bld) [Velocity]on 12-23-2024 ESR (Bld) [Velocity] 41 mm/h High 0-15 [facility] Comment on above: Order Comment: Speci men Type: BLOOD SPECIMEN [facility] Address: [address] [place] [address] Performed By: #### 1 988-5, 91598-9 #### [facility] CLIA [id number] [address] [place] [address] [place] Nuclear Ab IA Ql (S)on 12-23 KIERAN SCR QUAL Negative Normal Negative [facility] Comment on above: Order Comment: Speci men Type: BLOOD SPECIMEN Ordering Facility: [facility] Address: [address] [place] [address] Result Comment: The qualitative antinuclear antibody screen test performed using the following antigens: dsDNA, Chromatin, Ribosomal P, SS-A 60, SS-A 52, SS-B, Sm, SmRNP, ROOFER METAL A, ROOFER METAL 68, Scl-70, Ene-1, and Centromere B. Methodology: Multiplex flow immunoassay. Performed By: #### 4 7383-5 #### [facility] CLIA [id number] [address] [place] [address] [place] Rheumatoid fact SerPl-aCncon 12-23-2024 Rheumatoid factor Qn [IU]/mL Normal <16 [facility] Comment on above: Order Comment: Speci men Type: BLOOD SPECIMEN [facility] Address: [address] [place] [address] Performed By: #### 1 988-5, 29532-3 #### [facility] CLIA [id number] [address] [place] [address] OF [facility] CNOVon 12-16-2024 CNOV Office Visit ([facility]) ----- AJCKELYN KISER ([id number]) 1955 [facility] Date Time Provider Department 12/16/24 2:15 PM RENA KAY During your visit today, we recorded the following information about you: Temperature Pulse Respiration Blood pressure 98.4 degrees 105/minute 18/minute 126/82 Weight 62.8 kg Rena Kay APRN.[employer]PER[employer]OR 12/16/2024 3:36 PM Signed Subjective Jackelyn Kiser is a 69 year old male. HPI Patient brought for evaluation today for worsening of his chronic bilateral knee pain and shoulder pain. Family member here to translate for patient. Patient states that the knees have been hurting for several years sporadically but over the last several days have worsened. He notes the same for his shoulders, elbows, wrists, and fingers. Patient does state that several days ago he was not feeling well with a fever which has subsequently improved however he was laying in bed for the last several days and today was up moving around when he noticed that his joints seem more painful. Patient states that the fever and other symptoms have mostly resolved. Patient otherwise denies any recent strain or trauma. Review of Systems As above Objective BP 126/82 Pulse 105 Temp 36.9 ?C (98.4 ?F) (Tympanic) Resp 18 Wt 62.8 kg (138 lb 7.2 oz) SpO2 96% Physical Exam Vitals and nursing note reviewed. Constitutional: General: He is not in acute distress. Appearance: Normal appearance. He is not ill-appearing. HENT: Head: Normocephalic. Pulmonary: Effort: Pulmonary effort is normal. Musculoskeletal: General: Normal range of motion. Comments: No obvious swelling, erythema, ecchymosis, or deformities noted to either knee. Mild diffuse tenderness around the knee. Skin: General: Skin is warm. Neurological: General: No focal deficit present. Mental Status: He is alert and oriented to person, place, and time. Psychiatric: Mood and Affect: Mood normal. Behavior: Behavior normal. ASSESSMENT/PLAN: 1. Bilateral chronic knee pain - ICD9: 719.46, 338.29, ICD10: M25.561, M25.562, G89.29 (primary diagnosis) -X-ray of the bilateral knees shows osteoarthritis but no other concerning issues. I did review with family that I felt symptoms are most likely more consistent with arthritis combined with recent illness and having laid in bed for several days. Patient was given a prescription for naproxen to use as needed for pain and they were given orthopedic follow-up for continued evaluation of the chronic joint pain. I did consider possible septic arthritis however with no erythema or tenderness combined with no fever I feel this is highly unlikely. - XR KNEE GENERAL 4V AP BOTH/PA BOTH/LAT/MERC BILATERAL - CONSULT PANEL TO ORTHOPAEDICS - NAPROXEN 500 MG TABLET 2. Chronic pain of both shoulders - ICD9: 719.41, 338.29, ICD10: M25.511, G89.29, M25.512 As above - NAPROXEN 500 MG TABLET IHSAN Lozada Tim, APRN.CNP 12/16/2024 3:15 PM Signed My initial review of the x-rays does not show any concerning issues and I do suspect that the pain in the knees is most likely related to some arthritis and possibly also related to having laid in bed over several days. Please follow-up with the orthopedic doctor as directed. I will call you with the official x-ray results when they come in Allergies As of Date: 12/16/2024 (Not on File) Date Reviewed: 12/16/2024 Reviewed by: Rena Kay APRN.[employer] SUPERVISOR - Fully Assessed Reason for Visit: Bilateral Knee Pain [1210] Cmt: Bilateral knees and shoulder pain Primary Visit Diagnosis:Bilateral chronic knee pain [M25.561, M25.562, G89.29] Other Visit Diagnosis:Chronic pain of both shoulders [M25.511, G89.29, M25.512] Order(s):XR KNEE GENERAL 4V AP BOTH/PA BOTH/LAT/MERC BILATERAL [[id number]] Order #: [id number] FUTURE CONSULT PANEL TO ORTHOPAEDICS [[id number]] Order #: [id number]: 1 FUTURE naproxen (NAPROSYN) 500 mg tabletTake 1 tablet by mouth two times a day as needed (FOR PAIN - TAKE WITH FOOD.) for up to 20 doses.Disp: 20 tabletRfl: 0 Prescriptions as of 12/16/2024 - naproxen (NAPROSYN) 500 mg tablet Take 1 tablet by mouth two times a day as needed (FOR PAIN - TAKE WITH FOOD.) for up to 20 doses. Problem List As Of Date: 12/16/2024 (None) Other instructions from your clinician: My initial review of the x-rays does not show any concerning issues and I do suspect that the pain in the knees is most likely related to some arthritis and possibly also related to having laid in bed over several days. Please follow-up with the orthopedic doctor as directed. I will call you with the official x-ray results when they come in Prescriptions ordered this encounter Disp Refills Start End NAPROXEN 500 MG TABLET 20 t* 0 12/16/2024 Route: PO Sig: Take 1 tablet by mouth two times a day as needed (FOR PAIN - TAKE WITH FOOD.) for up to 20 doses. En (more content not included)... Normal [facility] XR KNEE 4V AP/PA/LAT/MERCH B ILon 12-16-2024 XR KNEE 4V AP/PA/LAT/MERCH PROSPER * * *Final Report* * * DATE OF EXAM: Dec 16 2024 3:14PM WOX [id number] - XR KNEE 4V AP/PA/LAT/MERCH PROSPER / PROCEDURE REASON: multiple diagnoses * * * * Physician Interpretation * * * * PROCEDURE: Bilateral knees INDICATION: Bilateral chronic knee pain .bilateral knee pain, the left a little worse than the right TECHNIQUE: XR KNEE 4V AP/PA/LAT/MERCH PROSPER COMPARISON: None FINDINGS: Mild tricompartment marginal spur formation bilaterally. Slight medial joint compartment narrowing in the right knee. No fracture or dislocation. No significant joint effusion. IMPRESSION: Mild osteoarthrosis Facilities And Grounds Director: GUS Transcribe Date/Time: Dec 16 2024 3:24P Dictated by : BRONSON NIETO MD This examination was interpreted and the report reviewed and electronically signed by: BRONSON NIETO MD on Dec 16 2024 3:30PM EST [id number] Normal [facility] Order Reconciliationon 02-17 Order Reconciliation Page 1 Discharge Reconciliation Document Reconciliation Type: Discharge requested on behalf of Cam Bush (Physician) done by Cam Bush) Discharge - Reconciliation: 17-Feb-2021 09:45 by: Cam Bush) Current OrdersDateHOME MEDICATIONS AT DISCHARGE DateReconciliation Comment/ Additional Information Artificial Tears (Preservative Free) SolutionDOSE = 1 drop(s) Right Eye Every 10 Minutes, PRN Dry EyesStop After 4 Doses 10-Feb-2021 07:42 Artificial Tears (Preservative Free) is not required HYDROmorphone Injectable (DILAUDID)DOSE = 0.4 mg IntraVenous Push Every 5 Minutes, PRN Pain - Severe (7-10) (PACU)Clinician Notes: Renetta-operative order ONLYMax total of 4 mg regardless of dose. 16-Feb-2021 10:24 HYDROmorphone Injectable is not required Ketorolac 0.5% Ophthalmic. Solution (ACULAR)DOSE = 1 drop(s) Right Eye Every 10 MinutesStop After 4 Doses 10-Feb-2021 07:42 Ketorolac 0.5% Ophthalmic. is not required Lactated Ringers Infusion IV Bag Volume = 1,000 mL Run at: 100 mL/hr IntraVenous Clinician Notes: Renetta-operative order ONLY 16-Feb-2021 10:24 Lactated Ringers Infusion is not required Lidocaine 1% - Phenylephrine 1.5% Intravitreal SolutionDOSE = 2 mL Intravitreal OnceClinician Notes: To be administered by surgeon 30-Sep-2021 07:42 Lidocaine 1% - Phenylephrine 1.5% Intravitreal is not required Moxifloxacin 0.5% Ophthalmic. Solution (VIGAMOX)DOSE = 1 mL Right Eye OnceClinician Notes: To be administered by surgeon 10-Feb-2021 07:42 Moxifloxacin 0.5% Ophthalmic. is not required Ondansetron Injectable (ZOFRAN)DOSE = 4 mg IntraVenous Push Once, PRN PONV, first lineClinician Notes: Renetta-operative order ONLY 16-Feb-2021 10:24 Ondansetron Injectable is not required oxyCODONE Immediate Release Tablet (OXYIR, ROXICODONE)DOSE = 5 mg Oral Once, PRN Pain - Mild (1-3) (PACU) when able to take OralClinician Notes: Renetta-operative order ONLY 16-Feb-2021 10:24 oxyCODONE Immediate Release is not required Phenylephrine 10% - Tropicamide 1% Ophthalmic Solution (MYDRIATIC COCKTAIL)DOSE = 1 drop(s) Right Eye Every 10 MinutesStop After 4 Doses 10-Feb-2021 07:42 Phenylephrine 10% - Tropicamide 1% Ophthalmic is not required Povidone Iodine 5% Ophthalmic. Solution (BETADINE)DOSE = 2 drop(s) Right Eye OnceClinician Notes: Prep around operative eye and drop into eye 10-Feb-2021 07:42 Povidone Iodine 5% Ophthalmic. is not required Tetracaine 0.5% Ophthalmic. SolutionDOSE = 1 drop(s) Right Eye Once 10-Feb-2021 07:42 Tetracaine 0.5% Ophthalmic. is not required Home Medications Added During Discharge Reconciliation Additional Patient Instructions Follow printed dishcarge instructions Discharge Discharge Diagnosis< H25.811 Combined forms of age-related cataract of right eye Discharge Provider, Cam Bush Discharge Disposition : .Home Condition at Discharge: Satisfactory Discharge Communication Instructions for Nursing Only: Remove IV prior to discharge from hospital. Do not remove any midline, if present, without an order from the provider. Discharge Instructions - PHR After your discharge from the hospital, two Summary of Care Documents will be available online in your Personal Health Record (PHR). 1.Consolidated-Clinical Document Architecture (C-CDA) Patient Discharge Summary This document is a summary of your hospital stay to be kept for your reference.2.C-CDA Visit Summary This document is a summary of your hospital stay to be shared with your follow-up providers (doctor, nutrition program instructor, physical therapist, etc.). Post Procedure Discharge Criteria Criteria: Easily arousable / responding appropriately; Significant complications are absent; SpO2 = or > 92%, or if SpO2 < 92%, maintains within 2% of baseline; Vital signs +/- 20% of preprocedure status; Ambulates without dizziness / age appropriate activity and ambulatory status returns to pre-procedure baseline. All Active Home Medications at time of Discharge Reconciliation: 17-Feb-2021 09:45 Additional Patient Instructions Follow printed dishcarge instructions Discharge Discharge Diagnosis< H25.811 Combined forms of age-related cataract of right eye Discharge Provider, Cam Bush Discharge Disposition : .Home Condition at Discharge: Satisfactory Discharge Communication Instructions for Nursing Only: Remove IV prior to discharge from hospital. Do not remove any midline, if present, without an order from the provider. Discharge Instructions - PHR After your discharge from the hospital, two Summary of Care Documents will be available online in your Personal Health Record (PHR). 1.Consolidated-Clinical Document Architecture (C-CDA) Patient Discharge Summary This document is a summary of your hospital stay to be kept for your reference.2.C-CDA Visit Summary This document is a summary of your hospital stay to be shared with your follow-up providers (doctor, nutrition program instructor, physical (more content not included)... [facility] Preop Checkliston 02-17-2021 Preop Checklist Preop Checklist: Preop Checklist: Arrival [id number] Arrival Time09:25 Procedure Typeright cataract Temperature C36.5 degrees C Temperature F97.7 degrees F Heart Rate62 beats per minute Respiratory Rate10 breath per minute Blood Pressure Czljcbxc790 mm/Hg Blood Pressure Wswdyqxut31 mm/Hg NPO [id number] 22:00 ID Band Onyes Allergy Bandno known allergies Consent Signedyes H&P Completeyes Anesthesia Assessment Completedyes EKG Performednot ordered Chest X-Ray Performednot ordered HCG Urine TestN/A Chlorhexadine Bath Givennot applicable Nasal Antiseptic Appliednot applicable Hair Washednot applicable Soap and water bath with hair shampoo the night before surgerynot applicable Hat placed on infant prior to transportnot applicable SCD's Appliednot applicable RAMON Hose Appliedno Denturesnot applicable Prostheticsnot applicable Hearing Aidsnot applicable Valuables Securedleft in patient room Glasses / Contactsnot applicable Cardiovascular Assessment: Apicalregular Extremitieswarm Respiratory Assessment: Respirationsunlabored Air Exchangegood, equal Breath Soundsclear Neurological Assessment: Level of Consciousnessalert Mobilitymoves all extremities Able to Express Selfyes Age Appropriateyes Emotional Statuscalm Skin Assessment: Skin Site(s) with Current Compromisenone Preop Education: Surgical Site Infection Preventionyes Pain Scales and Managementyes Language / Communication: Language / CommunicationEnglish Electronic Signatures: Meghann Kim (RN) (Signed 17-Feb-2021 09:56) Authored: Preop Checklist Last Updated: 17-Feb-2021 09:56 by Meghann Kim (RN) [facility] CORONAVIRUS 2019, SCREEN ASY MPTOMATICon 02-15-2021 SARS-CoV-2 (COVID-19) RNA CALLY+probe Ql (Unsp spec) Not detected Normal Not Detected [facility] Comment on above: Result Comment: . This assay is designed to detect the N, ORF1ab and/or S genes of SARS-CoV-2 via nucleic acid amplification. A Negative (NOT DETECTED) result does not preclude 2019-nCoV infection since the adequacy of sample collection and/or low viral burden may result in presence of viral nucleic acids below the clinical sensitivity of this test method. Negative (NOT DETECTED) result should not be used as the sole basis for treatment or other patient management decisions. Rather negative results should be combined with clinical observations, patient history, and epidemiological information to make patient management decisions. Fact sheet for providers: https://www.fda.gov/media/058206/download Fact sheet for patients: https://www.fda.gov/media/845306/download This test has received FDA Emergency Use Authorization (EUA) and has been verified by [facility] ([facility]). This test is only authorized for the duration of time that circumstances exist to justify the authorization of the emergency use of in vitro diagnostic tests for the detection of SARS-CoV-2 virus and/or diagnosis of COVID-19 infection under section 564(b)(1) of the Act, 21 U.S.C. 360bbb-3(b)(1), unless the authorization is terminated or revoked sooner. [facility] is certified under CLIA-88 as qualified to perform high complexity testing. Testing is performed in the [facility] laboratories located at [address] [place] [address]. Performed By: #### C OVSC #### [facility] [id number] [place] [address]. [place] [address] Covid 19 Resultson 1 SARS-CoV-2 (COVID-19) RNA CALLY+probe Ql (Unsp spec) NEGATIVE COVID-19 Test Coronaviruses are common world-wide and are the cause of many common colds. SARS-COV2 is a new coronavirus that began circulating worldwide in 2019 so we are calling it COVID-19. It has been estimated that four out of five patients with COVID-19 will recover at home without the need for medical attention. Symptoms of COVID-19 may include cough, fever, shortness of breath, loss of taste or smell and other flu-like symptoms including chills, sore muscles, sore throat, and headache. Severe illness is more common in older people and people with other health problems such as high blood pressure, obesity, and immune system problems. If the test is positive, you have COVID-19. You will be contacted by the ordering physicians office and instructed to remain on home isolation, in accordance with CDC guidelines. You may also be contacted by the [facility] to see if any of your close contacts may have been exposed to the virus and need to quarantine. If the test is negative, you likely do not have COVID-19 at this time, but you still may have a different illness that can spread to other people (like Influenza, or the Flu) and could still be at risk for getting COVID-19. We recommend that you stay away from other people to limit the spread of illness until your symptoms are improving and you are fever-free for 24 hours without the use of fever lowering medications such as acetaminophen or ibuprofen. No test is 100% accurate so if you are still concerned you may have COVID-19, talk to your doctor about the need to continue to stay away from others. Medicines Unless your provider told you not to use the following: Acetaminophen (Tylenol and others) is generally safe. Anti-inflammatory medications, such as Ibuprofen (Advil or Motrin) or Naproxen (Aleve) can also be used. Wgzz-eyv-abkgvea cough and cold medicines can be used according to the instructions on the package. Some rndp-gva-fszxgwf medicines also contain acetaminophen. Make sure you are not taking more than your recommended dose. For those not hospitalized, there is no specific treatment available for this illness. Antibiotics do not treat Coronaviruses. Follow-Up Follow up with your doctor by scheduling a virtual visit or consider follow-up at one of our urgent care fever clinics. If you are having difficulty breathing, or are very weak and having difficulty standing, this is a medical emergency. Call 911 or have someone take you to the nearest emergency room immediately. If possible, wear a facemask. Additional guidance from the CDC for patients who tested POSITIVE for COVID-19 How to isolate: Isolate yourself in a specific room at home and limit your contact with others. Use a separate bathroom from other members of the household, when possible. Leave home only to get essential medical care. Do not go to work, school or public areas. Avoid using public transportation, ride-sharing, or taxis. Restrict contact with pets and other animals. If you must care for your pet or be around animals while you are sick, wash your hands before and after your interaction and wear a facemask. Make sure that shared spaces in the home have good airflow, such as by an air conditioner or an opened window, weather permitting. Personal Hygiene Procedures: Wear a face mask when in the same room as other people or pets. If a face mask interferes with your breathing, others should wear a mask when sharing space with you. Frequent hand-washing: wash your hands with soap and water for at least 20 seconds. If soap and water are not available, use alcohol-based hand crester. Avoid touching your eyes, nose, and mouth with unwashed hands. Household Hygiene Procedures: Avoid sharing personal household items such as dishes, glassware, cups, eating utensils, towels or bedding with other people or pets in your home. After use, these items should be washed with soap and hot water. Disinfect all high-touch surfaces every day with antibacterial cleaning solutions such as Lysol wipes, bleach, cleansers, etc. High-touch surfaces include tabletops, doorknobs, bathroom fixtures, toilets, phones, keyboards, tablets and bedside tables. Immediately clean any surfaces that may have blood, poop or body fluids on them, using antibacterial cleaning solutions such as Lysol wipes, bleach, cleansers, etc. If clothing or bedding come into contact with blood, poop or body fluids, they should be washed immediately. Follow the directions on the laundry detergent and clothing labels but hot water is recommended when possible. Stopping home isolation precautions: If possible, consult your doctor before stopping home isolation precautions. According to the CDC, you can discontinue home isolation precautions when you have met both of these criteria: Your fever and respiratory symptoms have been gone for 24 alvin (more content not included)... Normal [facility] CORONAVIRUS 2019, SCREEN ASY MPTOMATICon 02-14-2021 Lab Specimen Source Nasal, Nasopharyngeal Normal [facility] Comment on above: Performed By: #### C OVSC #### [facility] [address] 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 (procedure may be cancelled if no tractor driver teamster), center location, insurance information Prep Instructions Reviewedyes Instructed to Have No Fluids Aftermidnight Stated Reason for Admissioneye surgery Primary Contact Name and Numberdavid...[phone] Patient Belongingsremains with patient Patient Belongings Remaining with Patientclothing Medications Brought to Hospitalno General Health: Weight in kg62 kilogram(s) Weight in cpe812.6 pound(s) Weight Methodstated Height in feet5 feet Height in inches8 inch(es) Height in cm172.7 centimeter(s) Height Methodstated BMI (kg/m2)20.787 square meter Patient or Family Member Reaction to Anesthesiano previous family member reaction; no previous reaction Health Mgmt: Symptoms/Conditions Managed at [facility] Barriers to Managing Healthnone Relationship/Environ: Resource/Environmental Concernsnone Services Anticipated at Transitionnone Substance: Smoking Statusformer smoker Alcohol Usedenies Drug Usedenies Drug 2 Usedenies Risk Screens: COVID-19 Screening Completedno exposure or symptoms Travel or ExposureNO travel to International locations in the past 30 days Advance Directive/DNRno Advance Directive Information Givenpatient/family declined During the past month, have you often been bothered by feeling down, depressed or hopelessno During the past month, have you often had little interest or pleasure in doing thingsno Have you had any thoughts of harming anyone elseno Risk Screen Not Applicable/Able to Answerable to be screened In the Past Month: Have you wished you were or could go to sleep and not wake upno In the Past Month: Have you had any actual thoughts of killing yourselfno Lifetime: Have you ever done, started to do, or prepared to do anything to end your lifeno Are you or have you been threatened or abused physically,emotionally or sexually abused by anyoneno Do you feel UNSAFE going back to the place you are livingno Patient is Able to be Assessed for Learningyes Factors Influencing Readiness to Learnacuteness of illness Factors that Impact Ability to Learnacuteness of illness, comprehension, language, literacy Devices/Methods Used to Communicateelectronic communication device, son in law Learning Preferencesverbal instruction; son in law....with pt. who does not speak wallisian... Cultural Considerationscultural considerations pt. does not speak wallisian. Developmental Considerationsnone Voodoo Considerationsnone Other learner availableyes... Learnerfamily; son in law here at time of admission. Factors Influencing Readiness to Learnacuteness of illness Factors that Impact Ability to Learnnone Devices/Methods Used to Communicatenone Learning Preferencesverbal instruction Cultural Considerationsnone Developmental Considerationsnone Voodoo Considerationsnone Falls RiskPatient location auto qualifies him/her for HIGH RISK. Are there any cultural, spiritual, congregation practices/values/needs that are important for us to knowyes speaks no wallisian. only speaks mohawk Pain Scalenumerical 0-10 Pain Scale Educationteaching provided Current Pain Level0 = None Acceptable Pain Level5 = Moderate Expression of Pain (nonverbal)none Chronic Painno Information Review: Allergies, Home Meds and Significant Events have been Reviewed and Verified with Patient/Familyyes Allergy, Intolerance, Adverse Event: Allergies: No Known Allergies: Active Electronic Signatures: Meghann Kim) (Signed 17-Feb-2021 09:47) Authored: Health Mgmt, Additional Information Helena Castillo (RN) (Signed 11-Feb-2021 12:49) Authored: Initial Info, General Health, Relationship/Environ, Substance, Risk Screens, Additional Information Last Updated: 17-Feb-2021 09:47 by Meghann Kim (RN) References: 1. Data Referenced From Patient Profile - Preop v2 24-Jan-2021 14:36 [facility] Order Reconciliationon 01-27 Order Reconciliation Page 1 Discharge Reconciliation Document Reconciliation Type: Discharge requested on behalf of Cam Bush (Physician) done by Cam Bush) Discharge - Reconciliation: 27-Jan-2021 09:06 by: Cam Bush) Current OrdersDateHOME MEDICATIONS AT DISCHARGE DateReconciliation Comment/ Additional Information Acetaminophen Tablet (TYLENOL)DOSE = 975 mg Oral Once 20-Jan-2021 07:41 Acetaminophen is not required Artificial Tears (Preservative Free) SolutionDOSE = 1 drop(s) Left Eye Every 10 Minutes, PRN Dry EyesStop After 4 Doses 20-Jan-2021 07:41 Artificial Tears (Preservative Free) is not required dexAMETHasone Injectable (DECADRON)DOSE = 4 mg IntraVenous Push Once 26-Jan-2021 08:10 dexAMETHasone Injectable is not required Ketorolac 0.5% Ophthalmic. Solution (ACULAR)DOSE = 1 drop(s) Left Eye Every 10 MinutesStop After 4 Doses 20-Jan-2021 07:41 Ketorolac 0.5% Ophthalmic. is not required Lactated Ringers Infusion IV Bag Volume = 1,000 mL Run at: 100 mL/hr IntraVenous 26-Jan-2021 08:10 Lactated Ringers Infusion is not required Lidocaine 1% - Phenylephrine 1.5% Intravitreal SolutionDOSE = 2 mL Intravitreal OnceClinician Notes: To be administered by surgeon 20-Jan-2021 07:41 Lidocaine 1% - Phenylephrine 1.5% Intravitreal is not required Midazolam Injectable (VERSED)DOSE = 1 mg IntraVenous Push Once 26-Jan-2021 08:10 Midazolam Injectable is not required Moxifloxacin 0.5% Ophthalmic. Solution (VIGAMOX)DOSE = 1 mL Left Eye OnceClinician Notes: To be administered by surgeon 20-Jan-2021 07:41 Moxifloxacin 0.5% Ophthalmic. 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 Do not remove any midline, if present, without an order from the provider. Discharge Instructions - PHR After your discharge from the hospital, two Summary of Care Documents will be available online in your Personal Health Record (PHR). 1.Consolidated-Clinical Document Architecture (C-CDA) Patient Discharge Summary This document is a summary of your hospital stay to be kept for your reference.2.C-CDA Visit Summary This document is a summary of your hospital stay to be shared with your follow-up providers (doctor, nutrition program instructor, physical therapist, etc.). Post Procedure Discharge Criteria Criteria: Easily arousable / responding appropriately; Significant complications are absent; SpO2 = or > 92%, or if SpO2 < 92%, maintains within 2% of baseline; Vital signs +/- 20% of preprocedure status; Ambulates without dizziness / age appropriate activity and ambulatory status returns to pre-procedure baseline. 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 Do not remove any midline, if present, without an order from the provider. Discharge Instructions - PHR After your discharge from the hospital, two Summary of Care Documents will be available online in your Personal Health Record (PHR). 1.Consolidated-Clinical Document Architecture (C-CDA) Patient Discharge Summary This document is a summary of your hospital stay to be kept for your reference.2.C-CDA Visit Summary This document is a summary of your hospital stay to be shared with your follow-up providers (doctor, nutrition program instructor, physical therapist, etc.). Post Procedure Discharge Criteria Criteria: Easily arousable / responding appropriately; Significant complications are absent; SpO2 = or > 92%, or if SpO2 < 92%, maintains within 2% of baseline; Vital signs +/- 20% of preprocedure status; Ambulates without dizziness / age appropriate activity and ambulatory status returns to pre-procedure baseline. [facility] Preop Checkliston 01-27-2021 Preop Checklist Preop Checklist: Preop Checklist: Arrival [id number] Arrival Time08:20 Procedure Typeleft cateract Temperature C36.3 degrees C Temperature F97.5 degrees F Heart Rate68 beats per minute Respiratory Rate20 breath per minute Blood Pressure Vsckrqon551 mm/Hg Blood Pressure Svorksfjo05 mm/Hg NPO [id number] 08:54 NPO Commentyes ID Band Onyes Allergy Bandno known allergies Consent Signedyes H&P Completeyes Anesthesia Assessment Completedyes EKG Performednot ordered Chest X-Ray Performednot ordered HCG Urine TestN/A Chlorhexadine Bath Givennot applicable Nasal Antiseptic Appliednot applicable Hair Washednot applicable Hat placed on infant prior to transportnot applicable SCD's Appliednot applicable RAMON Hose Appliednot ordered Denturesnot applicable Prostheticsnot applicable Hearing Aidsnot applicable Valuables Securednot applicable Glasses / Contactsnot applicable Bowel Prepno Cardiovascular Assessment: Apicalregular Extremitieswarm Respiratory Assessment: Respirationsunlabored regular Air Exchangegood, equal Breath Soundsclear Neurological Assessment: Level of Consciousnessalert, oriented Mobilitymoves all extremities Able to Express Selfyes Age Appropriateyes Emotional Statuscalm Skin Assessment: Skin Site(s) with Current Compromisenone Preop Education: Surgical Site Infection Preventionyes Pain Scales and Managementyes Language / Communication: Language / CommunicationEnglish Electronic Signatures: Una Villanueva (AMAYA) (Signed 27-Jan-2021 08:56) Authored: Preop Checklist Last Updated: 27-Jan-2021 08:56 by Una Villanueva (RN) [facility] CORONAVIRUS 2019, SCREEN ASY MPTOMATICon 01-24-2021 SARS-CoV-2 (COVID-19) RNA CALLY+probe Ql (Unsp spec) Not detected Normal Not Detected [facility] Comment on above: Result Comment: . This assay is designed to detect the N, ORF1ab and/or S genes of SARS-CoV-2 via nucleic acid amplification. A Negative (NOT DETECTED) result does not preclude 2019-nCoV infection since the adequacy of sample collection and/or low viral burden may result in presence of viral nucleic acids below the clinical sensitivity of this test method. Negative (NOT DETECTED) result should not be used as the sole basis for treatment or other patient management decisions. Rather negative results should be combined with clinical observations, patient history, and epidemiological information to make patient management decisions. Fact sheet for providers: https://www.fda.gov/media/946997/download Fact sheet for patients: https://www.fda.gov/media/759982/download This test has received FDA Emergency Use Authorization (EUA) and has been verified by [facility] ([facility]). This test is only authorized for the duration of time that circumstances exist to justify the authorization of the emergency use of in vitro diagnostic tests for the detection of SARS-CoV-2 virus and/or diagnosis of COVID-19 infection under section 564(b)(1) of the Act, 21 U.S.C. 360bbb-3(b)(1), unless the authorization is terminated or revoked sooner. [facility] is certified under CLIA-88 as qualified to perform high complexity testing. Testing is performed in the [facility] laboratories located at [address] [place] [address]. Performed By: #### C [facility] #### [place] [address] Lab Specimen Source Nasal, Nasopharyngeal Normal [facility] Comment on above: Performed By: #### C [facility] #### [place] [address] Covid 19 Resultson SARS-CoV-2 (COVID-19) RNA CALLY+probe Ql (Unsp spec) NEGATIVE COVID-19 Test Coronaviruses are common world-wide and are the cause of many common colds. SARS-COV2 is a new coronavirus that began circulating worldwide in 2019 so we are calling it COVID-19. It has been estimated that four out of five patients with COVID-19 will recover at home without the need for medical attention. Symptoms of COVID-19 may include cough, fever, shortness of breath, loss of taste or smell and other flu-like symptoms including chills, sore muscles, sore throat, and headache. Severe illness is more common in older people and people with other health problems such as high blood pressure, obesity, and immune system problems. If the test is positive, you have COVID-19. You will be contacted by the ordering physicians office and instructed to remain on home isolation, in accordance with CDC guidelines. You may also be contacted by the [facility] to see if any of your close contacts may have been exposed to the virus and need to quarantine. If the test is negative, you likely do not have COVID-19 at this time, but you still may have a different illness that can spread to other people (like Influenza, or the Flu) and could still be at risk for getting COVID-19. We recommend that you stay away from other people to limit the spread of illness until your symptoms are improving and you are fever-free for 24 hours without the use of fever lowering medications such as acetaminophen or ibuprofen. No test is 100% accurate so if you are still concerned you may have COVID-19, talk to your doctor about the need to continue to stay away from others. Medicines Unless your provider told you not to use the following: Acetaminophen (Tylenol and others) is generally safe. Anti-inflammatory medications, such as Ibuprofen (Advil or Motrin) or Naproxen (Aleve) can also be used. Bzlk-dtg-bmlnaji cough and cold medicines can be used according to the instructions on the package. Some zszg-ltq-ytthttd medicines also contain acetaminophen. Make sure you are not taking more than your recommended dose. For those not hospitalized, there is no specific treatment available for this illness. Antibiotics do not treat Coronaviruses. Follow-Up Follow up with your doctor by scheduling a virtual visit or consider follow-up at one of our urgent care fever clinics. If you are having difficulty breathing, or are very weak and having difficulty standing, this is a medical emergency. Call 911 or have someone take you to the nearest emergency room immediately. If possible, wear a facemask. Additional guidance from the CDC for patients who tested POSITIVE for COVID-19 How to isolate: Isolate yourself in a specific room at home and limit your contact with others. Use a separate bathroom from other members of the household, when possible. Leave home only to get essential medical care. Do not go to work, school or public areas. Avoid using public transportation, ride-sharing, or taxis. Restrict contact with pets and other animals. If you must care for your pet or be around animals while you are sick, wash your hands before and after your interaction and wear a facemask. Make sure that shared spaces in the home have good airflow, such as by an air conditioner or an opened window, weather permitting. Personal Hygiene Procedures: Wear a face mask when in the same room as other people or pets. If a face mask interferes with your breathing, others should wear a mask when sharing space with you. Frequent hand-washing: wash your hands with soap and water for at least 20 seconds. If soap and water are not available, use alcohol-based hand crester. Avoid touching your eyes, nose, and mouth with unwashed hands. Household Hygiene Procedures: Avoid sharing personal household items such as dishes, glassware, cups, eating utensils, towels or bedding with other people or pets in your home. After use, these items should be washed with soap and hot water. Disinfect all high-touch surfaces every day with antibacterial cleaning solutions such as Lysol wipes, bleach, cleansers, etc. High-touch surfaces include tabletops, doorknobs, bathroom fixtures, toilets, phones, keyboards, tablets and bedside tables. Immediately clean any surfaces that may have blood, poop or body fluids on them, using antibacterial cleaning solutions such as Lysol wipes, bleach, cleansers, etc. If clothing or bedding come into contact with blood, poop or body fluids, they should be washed immediately. Follow the directions on the laundry detergent and clothing labels but hot water is recommended when possible. Stopping home isolation precautions: If possible, consult your doctor before stopping home isolation precautions. According to the CDC, you can discontinue home isolation precautions when you have met both of these criteria: Your fever and respiratory symptoms have been gone for 24 alvin (more content not included)... 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 (procedure may be cancelled if no tractor driver teamster), center location, insurance information Prep Instructions Reviewedyes Instructed to Have No Fluids Aftermidnight Stated Reason for Admissioneye surgery Primary Contact Name and Numberdavid...[phone] Patient Belongingsremains with patient Patient Belongings Remaining with Patientclothing Medications Brought to Hospitalno General Health: Weight in kg62 kilogram(s) Weight in aqy560.6 pound(s) Weight Methodstated Height in feet5 feet Height in inches8 inch(es) Height in cm172.7 centimeter(s) Height Methodstated BMI (kg/m2)20.787 square meter Patient or Family Member Reaction to Anesthesianever had anesthesia; no previous family member reaction Relationship/Environ: Resource/Environmental Concernsnone Services Anticipated at Transitionnone Substance: Smoking Statusformer smoker Alcohol Usedenies Drug Usedenies Drug 2 Usedenies Risk Screens: COVID-19 Screening Completedno exposure or symptoms Travel or ExposureNO travel to International locations in the past 30 days Advance Directive/DNRno Advance Directive Information Givenpatient/family declined During the past month, have you often been bothered by feeling down, depressed or hopelessno During the past month, have you often had little interest or pleasure in doing thingsno Have you had any thoughts of harming anyone elseno Risk Screen Not Applicable/Able to Answerable to be screened In the Past Month: Have you wished you were or could go to sleep and not wake upno In the Past Month: Have you had any actual thoughts of killing yourselfno Lifetime: Have you ever done, started to do, or prepared to do anything to end your lifeno Are you or have you been threatened or abused physically,emotionally or sexually abused by anyoneno Do you feel UNSAFE going back to the place you are livingno Patient is Able to be Assessed for Learningyes Factors Influencing Readiness to Learnacuteness of illness Factors that Impact Ability to Learnacuteness of illness, comprehension, language, literacy Devices/Methods Used to Communicateelectronic communication device, son in law Learning Preferencesverbal instruction; son in law....with pt. who does not speak wallisian... Cultural Considerationscultural considerations pt. does not speak wallisian. Developmental Considerationsnone Voodoo Considerationsnone Other learner availableyes... Learnerfamily; son in law here at time of admission. Factors Influencing Readiness to Learnacuteness of illness Factors that Impact Ability to Learnnone Devices/Methods Used to Communicatenone Learning Preferencesverbal instruction Cultural Considerationsnone Developmental Considerationsnone Voodoo Considerationsnone Falls RiskPatient location auto qualifies him/her for HIGH RISK. Are there any cultural, spiritual, congregation practices/values/needs that are important for us to knowyes speaks no wallisian. only speaks mohawk Pain Scalenumerical 0-10 Pain Scale Educationteaching provided Current Pain Level0 = None Acceptable Pain Level5 = Moderate Expression of Pain (nonverbal)none Chronic Painno Information Review: Allergies, Home Meds and Significant Events have been Reviewed and Verified with Patient/Familyyes Allergy, Intolerance, Adverse Event: Allergies: No Known Allergies: Active Electronic Signatures: Una Villanueva (RN) (Signed 27-Jan-2021 10:28) Authored: Initial Info, Relationship/Environ, Risk Screens, Additional Information Helena Castillo (RN) (Signed 24-Jan-2021 14:37) Authored: Initial Info, General Health, Substance, Risk Screens, Additional Information Last Updated: 27-Jan-2021 10:28 by Una Villanueva (RN) [facility] Vital Signs Date Time Vital Sign Value Performing Clinician Gerson rodriguez 12-24-2024 21:21-0400 Body temperature 97 [degF] Dr. Geraldine Viera MD [facility] 12-24-2024 21:21-0400 Diastolic blood pressure 80 mm[Hg] Dr. Geraldine Viera MD [facility] 12-24-2024 21:21-0400 Heart rate 84 /min Dr. Geraldine Viera MD [facility] 12-24-2024 21:21-0400 Respiratory rate 18 /min Dr. Geraldine Viera MD [facility] 12-24-2024 21:21-0400 SaO2% (BldA) [Mass fraction] 99 % Dr. Geraldine Viera MD [facility] 12-24-2024 21:21-0400 Systolic blood pressure 142 mm[Hg] Dr. Geraldine Viera MD [facility] 12-24-2024 18:39-0400 Body height 172.[address] Geraldine Viera MD [facility] 12-24-2024 18:39-0400 Body mass index (BMI) [Ratio] 21.6 kg/m2 Dr. Geraldine Viera MD [facility] 12-24-2024 18:39-0400 Body weight 64.[address] Geraldine Viera MD [facility] Encounters Encounter Date Encounter Type Care Provider Facility Start: 12-24-2024 End: 12-24-2024 Emergency department patient visit Dr. Geraldine Viera MD -Emergency Department Work Phone: Start: 12-24-2024 End: 12-24-2024 Office outpatient visit 25 minutes Ezequiel Hernandez PA-C Work Phone: [facility] [place] Comment on above: Urinary retention Start: 12-24-2024 End: 12-24-2024 ambulatory LUISA BUCHANAN Facility:[facility] Start: 12-24-2024 End: 12-25-2024 Follow-up encounter Deangelo Dunn DO Work Phone: Orthopaedics Start: 12-23-2024 End: 12-23-2024 Patient encounter procedure Deangelo Dunn DO Work Phone: [facility] [place] Comment on above: Polyarthralgia (Prim noah Dx); Primary osteoarthritis of left knee; Chronic left shoulder pain; Swelling of left wrist; Generalized osteoarthritis Start: 12-23-2024 End: 12-23-2024 ambulatory DEANGELO DUNN V Facility:[facility] Start: 12-16-2024 End: 12-16-2024 ambulatory RENA KAY Facility:[facility] Procedures Date Procedure Procedure Detail Performing Clinician Start: 12-24-2024 Urnls dip stick/tabl et reagent auto microscopy Dr. Geraldine Viera MD Plan of Treatment Date Care Activity Detail Author Start: 2029 RSV Vaccine (1 - 1-d ose 75+ series) RSV Vaccine (1 - 1-dose 75+ series) [facility] Start: 12-24-2027 Diabetes Screening Diabetes Screenin g [facility] Start: 01-22-2025 End: 01-22-2025 Patient encounter procedure 01/22/2025 9:20 AM EDT Office Visit [facility] [address], [place] [id number] Acacia Kumar MD [address] [place], [place] [id number] knee pain, blood pressure [facility] Comment on above: knee pain, blood pre ssure Start: 2025 Influenza vaccination Influenza Vacc ine (#1) [facility] Start: 01-02-2025 End: 01-02-2025 Patient encounter procedure 01/02/2025 9:00 AM EDT Office Visit [facility] [address] [place] [phone] PostletKinga santos APRN.[employer] [address] [place], [place] [address] PVR, UA - urinary retention - has cath [facility] Comment on above: PVR, UA - urinary re tention - has cath Start: 12-24-2024 [facility] Start: 12-23-2024 End: 03-23-2025 C reactive protein [Mass/volume] in Serum or Plasma [facility] Comment on above: Expected: 12/23/2024 , Expires: 03/23/2025 Start: 12-23-2024 End: 03-23-2025 Erythrocyte sedimentation rate [facility] Work Phone: Comment on above: Expected: 12/23/2024 , Expires: 03/23/2025 Start: 12-23-2024 End: 03-23-2025 Nuclear Ab [Presence] in Serum by Immunoassay [facility] Comment on above: Expected: 12/23/2024 , Expires: 03/23/2025 Start: 12-23-2024 End: 03-23-2025 Rheumatoid factor [Units/volume] in Serum or Plasma [facility] Comment on above: Expected: 12/23/2024 , Expires: 03/23/2025 Start: 05-14-2024 Advance Directive Discussion Advance Directive Discussion [facility] Start: 05-14-2024 Medicare Advantage Annual Wellness Visit Medicare Advantage Annual Wellness Visit [facility] Start: 11-16-2021 Pneumococcal Vaccine : 50+ (2 of 2 - PCV) Pneumococcal Vaccine: 50+ (2 of 2 - PCV) [facility] Start: 01-13-2004 Screening for malign ant neoplasm of lung Lung Cancer Screening [facility] Start: 01-13-2004 Shingrix Vaccine (1 of 2) Shingrix Vaccine (1 of 2) [facility] Start: 1999 Diabetes Screening Diabetes Screenin g [facility] Start: 1999 Screening for malign ant neoplasm of colon [facility] Start: 1989 Lipid panel Lipid Screening [facility] Start: 1973 Urine microalbumin profile DTaP,Tdap,Td Vaccine (1 - Tdap) [facility] Start: 01-13-1972 Anxiety Screening Anxiety Screening [facility] Start: 01-13-1972 Depression Screening Depression Scre ening [facility] Start: 01-13-1972 Hepatitis C screening Hepatitis C Sc margaritaning [facility] Start: 1954 Abdominal aortic aneurysm screening Abdominal Aortic Aneurysm Screening [facility] Microscopic urinalysis [facility] Organism count, microscopic method [facility] Patient Education Leg Bag Care D c Ascencio Catheter Male Ch ED Ascencio Catheter, Care [facility] Work Phone: Urine microscopy: epithelial cells [facility] Urine microscopy: re d cells [facility] White blood cell count [facility] Immunizations Immunization Date Immunization Notes Care Provider Fa arunty 11-16-2020 pneumococcal polysaccharide vaccine, 23 valent Deangelo Dunn V, DO Work Phone: [facility] 09-16-2020 COVID-19 original vaccine, full dose, monovalent (MODERNA) Deangelo Dunn V, DO Work Phone: [facility] 08-19-2020 COVID-19 original vaccine, full dose, monovalent (MODERNA) Deangelo Dunn V, DO Work Phone: [facility] Payers Date Payer Category Payer Self-pay 2024 Medicare (Managed Care) MMO [employer] HMO Member Subscriber Plan / Payer (Effective 2024-Present) Name: Rashel Hayden Relation to Subscriber: Self Name: Rashel Hayden Payer ID: Not on file Type: HMO Address: [place] [id number] 2024 Medicare [id number] Unknown [id number] Social History Date Type Detail Facility Start: 11-16-2020 Tobacco smoking stat [facility] Tobacco smoking consumption unknown [facility] Work Phone: Start: 12-17-2024 End: 12-23-2024 History of Social function [facility] Start: 12-17-2024 End: 12-23-2024 Tobacco use panel [facility] Start: 10-14-2020 National Score (1-100), lower number is lower risk 72 [facility] Work Phone: Start: 1955 Sex assigned at Not on file [facility] Start: 12-24-2024 Tobacco smoking stat [facility] Never smoked tobacco (finding) [facility] Start: 1955 Sex Assigned At Male [facility] Start: 11-16-2020 [facility] Work Phone: Start: 05-14-1982 End: 05-14-2012 History of tobacco use Current smoker [facility] Start: 05-14-1982 End: 05-14-2012 History of tobacco use Cigarette Smoker [facility] Start: 11-16-2020 Tobacco use and exposure Smokeless tobacco non-user [facility] Start: 12-17-2024 Alcoholic beverage intake Ex-drinker (finding) [facility] Clinical Notes 01-27-2021 to 12-25-2024 Telephone Encounter - Lyric Irizarry MA - 12/25/2024 9:50 AM EDTTelephone Encounter - Lyric Irizarry MA - 12/25/2024 9:50 AM EDEzequiel Maldonado PA-C - 12/24/2024 6:39 PM EDT Note Date & Type Note Facility 12-25-2024 Telephone encounter Note See [facility] message. Lyric Irizarry MA [facility] 12-25-2024 Miscellaneous Notes See [employer] message. Lyric Irizarry MA documented in this encounter [facility] 12-24-2024 Note HNO ID: [id number] Author: EZEQUIEL HERNANDEZ PA-C Service: ? Author Type: Physician Feather Mixer Type: Progress Notes Filed: 12/24/2024 18:40 Note Text: [facility] CARE [facility] Hayden is a 69 year old male. No chief complaint on file. HPI Oliguria: - Onset last night after taking a new medication. - Nocturia with minimal urine output around 0200 and 0400. - Minimal urine output during three attempts today. - Denies previous episodes or history of urethral stricture. - Denies emesis or cough. - Reports throat discomfort. Patient's Czech is limited. Per his daughter, he began taking prednisone last night as prescribed. He was unable to urinate except for a few drops last night and throughout the day today. Patient presents with moderate bladder distention and discomfort at this time. Review of Systems Ears/Nose/Mouth/Throat: (+) throat pain Respiratory: (-) cough Gastrointestinal: (-) vomiting Genitourinary: (+) decreased urine output Objective There were no vitals taken for this visit. Physical Exam General: No acute distress. CV: Regular rate and rhythm. Resp: Lungs clear to auscultation bilaterally. Abd: Bowel sounds present; bladder distention noted on palpation. 1. Urinary retention (R33.9) - Acute urinary retention following administration of a new medication last night; no prior history of urinary retention or urethral stricture. - Exam notable for bladder distention. - Advised immediate transfer to the emergency department for catheterization and bladder decompression. - Instructed to discontinue the recently started medication. - Explained that this condition is generally reversible and may be related to medication-induced urethral spasm. - Discussed likely need for urology follow-up after ED management. - Stop taking the medication you received last night that likely caused your urine retention. - Go to the emergency department immediately for a urinary catheter to drain your bladder. - After bladder drainage, arrange a follow-up appointment with a urologist to evaluate your urinary retention and plan further care. I have advised this patient and his daughter to proceed to the emergency department immediately. MDM Procedures [facility] 12-24-2024 History of Presen t illness Narrative [facility] Subjective Rashel Hayden is a 69 year old male. No chief complaint on file. HPI Oliguria: - Onset last night after taking a new medication. - Nocturia with minimal urine output around 0200 and 0400. - Minimal urine output during three attempts today. - Denies previous episodes or history of urethral stricture. - Denies emesis or cough. - Reports throat discomfort. Patient's Czech is limited. Per his daughter, he began taking prednisone last night as prescribed. He was unable to urinate except for a few drops last night and throughout the day today. Patient presents with moderate bladder distention and discomfort at this time. Review of Systems Ears/Nose/Mouth/Throat: (+) throat pain Respiratory: (-) cough Gastrointestinal: (-) vomiting Genitourinary: (+) decreased urine output Objective There were no vitals taken for this visit. Physical Exam General: No acute distress. CV: Regular rate and rhythm. Resp: Lungs clear to auscultation bilaterally. Abd: Bowel sounds present; bladder distention noted on palpation. 1. Urinary retention (R33.9) - Acute urinary retention following administration of a new medication last night; no prior history of urinary retention or urethral stricture. - Exam notable for bladder distention. - Advised immediate transfer to the emergency department for catheterization and bladder decompression. - Instructed to discontinue the recently started medication. - Explained that this condition is generally reversible and may be related to medication-induced urethral spasm. - Discussed likely need for urology follow-up after ED management. - Stop taking the medication you received last night that likely caused your urine retention. - Go to the emergency department immediately for a urinary catheter to drain your bladder. - After bladder drainage, arrange a follow-up appointment with a urologist to evaluate your urinary retention and plan further care. I have advised this patient and his daughter to proceed to the emergency department immediately. MDM Procedures documented in this encounter [facility] 12-23-2024 Note HNO ID: [id number] Author: DEANGELO DUNN, DO Service: ? Author Type: Physician Type: Progress Notes Filed: 12/23/2024 14:29 Note Text: Subjective The patient is a 69-year-old male, accompanied by his daughter who is providing history on his behalf, presenting for evaluation of chronic knee pain. Knee Pain: - Chronic knee pain x3-4 years, previously mild but significantly worsened in the last month. - Pain is diffuse, described as all around the knee and radiating down the leg. - Recent swelling noted in the knee. - X-ray showed some arthritis, but no fractures or dislocations. - Denies known trauma. Polyarthralgia: - Reports pain in shoulders, wrists, and ribs. - Notable swelling in the left wrist. - Left hand weakness, difficulty holding objects. - Limited mobility; primarily sedentary, with minimal walking. Musculoskeletal: (+) knee pain, (+) knee swelling, (+) left wrist pain, (+) left wrist swelling, (+) shoulder pain, (+) left hand weakness Objective There were no vitals taken for this visit. General: No acute distress. MSK/Ext: Left wrist swelling, left wrist weakness, bilateral knee pain, mild knee pain with lateral Kee test, no pain with Joel test, crepitus in knee joint, left knee swelling, left knee swelling greater than right knee, left knee tenderness, left knee joint stable, no knee joint warmth. Imaging: - X-ray of the knee: Mild degenerative changes consistent with arthritis, no fracture or dislocation. Assessment AND Plan 1. Polyarthralgia (M25.50) 2. Primary osteoarthritis of left knee (M17.12) 3. Chronic left shoulder pain (M25.512) 4. Swelling of left wrist (M25.432) 5. Generalized osteoarthritis (M15.9) - Chronic knee pain with recent worsening; X-ray shows mild arthritis, but not sufficient to explain severity of symptoms. - Multiple joint involvement (shoulders, wrists, knees, ankles) with swelling and pain; left wrist swelling more pronounced than right. - Differential includes inflammatory arthritis such as rheumatoid arthritis. - Ordered blood tests to evaluate for systemic inflammatory arthritis. - Start prednisone: 4 tablets daily for 5 days, then 2 tablets daily for 5 days, then 1 tablet daily for 5 days. - Educated on prednisone taper schedule and its role in reducing inflammation and swelling while awaiting lab results. - Encouraged increased physical activity and walking as tolerated. - Will call with lab results when available. Recording using [employer] software for draft documentation of the visit was discussed with the patient/authorized employee representative; all questions welcomed and answered. Patient/authorized employee representative agreed to proceed [facility] 12-23-2024 History of Presen t illness Narrative Subjective The patient is a 69-year-old male, accompanied by his daughter who is providing history on his behalf, presenting for evaluation of chronic knee pain. Knee Pain: - Chronic knee pain x3-4 years, previously mild but significantly worsened in the last month. - Pain is diffuse, described as all around the knee and radiating down the leg. - Recent swelling noted in the knee. - X-ray showed some arthritis, but no fractures or dislocations. - Denies known trauma. Polyarthralgia: - Reports pain in shoulders, wrists, and ribs. - Notable swelling in the left wrist. - Left hand weakness, difficulty holding objects. - Limited mobility; primarily sedentary, with minimal walking. Musculoskeletal: (+) knee pain, (+) knee swelling, (+) left wrist pain, (+) left wrist swelling, (+) shoulder pain, (+) left hand weakness Objective There were no vitals taken for this visit. General: No acute distress. MSK/Ext: Left wrist swelling, left wrist weakness, bilateral knee pain, mild knee pain with lateral Kee test, no pain with Joel test, crepitus in knee joint, left knee swelling, left knee swelling greater than right knee, left knee tenderness, left knee joint stable, no knee joint warmth. Imaging: - X-ray of the knee: Mild degenerative changes consistent with arthritis, no fracture or dislocation. Assessment & Plan 1. Polyarthralgia (M25.50) 2. Primary osteoarthritis of left knee (M17.12) 3. Chronic left shoulder pain (M25.512) 4. Swelling of left wrist (M25.432) 5. Generalized osteoarthritis (M15.9) - Chronic knee pain with recent worsening; X-ray shows mild arthritis, but not sufficient to explain severity of symptoms. - Multiple joint involvement (shoulders, wrists, knees, ankles) with swelling and pain; left wrist swelling more pronounced than right. - Differential includes inflammatory arthritis such as rheumatoid arthritis. - Ordered blood tests to evaluate for systemic inflammatory arthritis. - Start prednisone: 4 tablets daily for 5 days, then 2 tablets daily for 5 days, then 1 tablet daily for 5 days. - Educated on prednisone taper schedule and its role in reducing inflammation and swelling while awaiting lab results. - Encouraged increased physical activity and walking as tolerated. - Will call with lab results when available. Recording using [employer] software for draft documentation of the visit was discussed with the patient/authorized employee representative; all questions welcomed and answered. Patient/authorized employee representative agreed to proceed Patient presents with: Bilateral Knee Pain: Referred by Rena Kay AMB ROOMING INTAKE FLOWSHEET DATA Pain Pain Level: 10 Pain Location: (Bilateral knees) Description: Radiating Duration Amount of Time: 2 Duration Units: Months Frequency: Continuous Intervention/Comfort measure: Medication Daughter with patient today and interpreting. documented in this encounter [facility] 12-23-2024 Note HNO ID: [id number] Author: DOMINGA IZAGUIRRE MA Service: ? Author Type: Racing Manager Type: Progress Notes Filed: 12/23/2024 14:29 Note Text: Patient presents with: Bilateral Knee Pain: Referred by Rena Kay AMB ROOMING INTAKE FLOWSHEET DATA Pain Pain Level: 10 Pain Location: (Bilateral knees) Description: Radiating Duration Amount of Time: 2 Duration Units: Months Frequency: Continuous Intervention/Comfort measure: Medication Daughter with patient today and interpreting. [facility] 12-16-2024 Note HNO ID: [id number] Author: RENATO DUNN Tech Service: ? Author Type: Directional Bore Operator Type: Progress Notes Filed: 12/16/2024 15:12 Note Text: Radiology Service Progress Note PATIENT NAME: Jackelyn Kiser DATE OF SERVICE: December 16, 2024 TIME: 2:47 PM PATIENT IDENTITY VERIFICATION COMPLETED USING TWO (2) IDENTIFIERS: Name and Date of confirmed by patient verbally. FALL SCREENING: Has the patient had 2 falls in the last year or 1 fall with injury or currently using an Ambulatory Assistive Device (Walker, Cane, Wheelchair, Crutches, etc.)? No PATIENT GENDER DATA: Assigned male at PATIENT RELEVANT IMPLANT DATA REVIEWED: Yes PATIENT PRESENTS WITH AN IMPLANTABLE OR ATTACHED ENGINEER FIRST ASSISTANT: No RADIOLOGY DEPARTMENT: General X-ray: Exam(s) Completed: Lower Extremity X-Ray(s): Knee, AP / Lat / Tunne / Merchant Bilateral PERIPHERAL IV DATA: Not applicable SIGNED BY: Lucy Almanzar December 16, 2024 2:47 PM [facility] 12-16-2024 Note HNO ID: [id number] Author: RENA KAY APRN.[employer] F[employer]RICATION SUPERVISOR Service: ? Author Type: Nurse Practitioner Type: Progress Notes Filed: 12/16/2024 15:36 Note Text: Subjective Jackelyn Kiser is a 69 year old male. HPI Patient brought for evaluation today for worsening of his chronic bilateral knee pain and shoulder pain. Family member here to translate for patient. Patient states that the knees have been hurting for several years sporadically but over the last several days have worsened. He notes the same for his shoulders, elbows, wrists, and fingers. Patient does state that several days ago he was not feeling well with a fever which has subsequently improved however he was laying in bed for the last several days and today was up moving around when he noticed that his joints seem more painful. Patient states that the fever and other symptoms have mostly resolved. Patient otherwise denies any recent strain or trauma. Review of Systems As above Objective BP 126/82 Pulse 105 Temp 36.9 ?C (98.4 ?F) (Tympanic) Resp 18 Wt 62.8 kg (138 lb 7.2 oz) SpO2 96% Physical Exam Vitals and nursing note reviewed. Constitutional: General: He is not in acute distress. Appearance: Normal appearance. He is not ill-appearing. HENT: Head: Normocephalic. Pulmonary: Effort: Pulmonary effort is normal. Musculoskeletal: General: Normal range of motion. Comments: No obvious swelling, erythema, ecchymosis, or deformities noted to either knee. Mild diffuse tenderness around the knee. Skin: General: Skin is warm. Neurological: General: No focal deficit present. Mental Status: He is alert and oriented to person, place, and time. Psychiatric: Mood and Affect: Mood normal. Behavior: Behavior normal. ASSESSMENT/PLAN: 1. Bilateral chronic knee pain - ICD9: 719.46, 338.29, ICD10: M25.561, M25.562, G89.29 (primary diagnosis) -X-ray of the bilateral knees shows osteoarthritis but no other concerning issues. I did review with family that I felt symptoms are most likely more consistent with arthritis combined with recent illness and having laid in bed for several days. Patient was given a prescription for naproxen to use as needed for pain and they were given orthopedic follow-up for continued evaluation of the chronic joint pain. I did consider possible septic arthritis however with no erythema or tenderness combined with no fever I feel this is highly unlikely. - XR KNEE GENERAL 4V AP BOTH/PA BOTH/LAT/MERC BILATERAL - CONSULT PANEL TO ORTHOPAEDICS - NAPROXEN 500 MG TABLET 2. Chronic pain of both shoulders - ICD9: 719.41, 338.29, ICD10: M25.511, G89.29, M25.512 As above - NAPROXEN 500 MG TABLET Rena Kay APRN.[employer]ING FABRICATION SUPERVISOR [facility] 02-17-2021 Note Post Operative Note: Post-Procedure Diagnosis: 1. Combined Form Age Related Cataract Right Eye Procedure: 1. Cataract Extraction with Intraocular Lens Implant Right Eye Surgeon: Cam Bush MD Resident/Fellow/Other Feather Mixer: None Estimated Blood Loss (mL): none Specimen: no Findings: 1. 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 The operative eye was dilated in the preoperative area. The patient was then taken to the operating room where timeout was performed before starting the procedure. Combined anesthesia with intravenous sedation and topical tetracaine eyedrops were instilled into the right eye. The operative eye was prepped and draped in the standard sterile ophthalmic fashion in preparation for ophthalmic surgery. A Anselmo wire speculum was then inserted between the eyelids of the right eye and the operating microscope was placed over the right eye. A paracentesis incision was made approximately 30 away from the planned surgical incision site with the help of MVR blade. 1% lidocaine MPF with Phenylephrine 1.5% PF was injected into the anterior chamber through the paracentesis incision. A near limbal clear corneal incision was fashioned in the temporal quadrant just outside the vascular arcade and Viscoat was injected into anterior chamber to firm the eye. A bent needle cystotome was used and Utrata forceps were utilized to create a continuous curvilinear capsulorrhexis. BSS was injected beneath the anterior capsule to hydrodissect the nucleus from adjacent cortex and capsule. The residual cortex was then aspirated with irrigation/aspiration handpiece. The posterior capsule was then polished with the help of soft irrigation-aspiration tip. Provisc viscoelastic was then injected into the eye to reform the anterior chamber and to open the capsular bag. The intraocular lens implant was taken from its sterile wrapping, inspected under the surgical microscope and found to be in good condition. The intraocular lens implant 24.5D was injected into the capsule bag. The Provisc was then aspirated from the anterior chamber and from behind the intraocular lens implant. The anterior chamber was inflated with the help of BSS to moderate tension. And the edges of the surgical incision were then hydrated with the help of BSS. Vigamox was then injected into the anterior chamber and into the capsule bag through the paracentesis incision. The surgical wound was then inspected and found to be watertight. The wire speculum and drapes were then removed. Pred Forte eyedrops, Acular eyedrops and Betadine 5% sterile ophthalmic solution were instilled in the conjunctival sac. The patient tolerated the procedure well and was taken to recovery room in stable condition. Attestation: Note Completion: Attending AttestationI performed the procedure without a resident Electronic Signatures: Cam Bush) (Signed 17-Feb-2021 12:11) Authored: Post Operative Note, Note Completion Last Updated: 17-Feb-2021 12:11 by Cam Bush) [facility] 02-17-2021 Note History & Physical R eviewed: I have reviewed the History and Physical dated: 28-Jan-2021 History and Physical reviewed and relevant findings noted. Patient examined to review pertinent physical findings.: No significant changes Home Medications Reviewed: no changes noted Allergies Reviewed: no changes noted ERAS (Enhanced Recovery After Surgery): ERAS Patient: no Consent: COVID-19 Consent: COVID-19 Risk ConsentSurgeon has reviewed licona risks related to the risk of chandler COVID-19 and if they contract COVID-19 what the risks are. Electronic Signatures: Cam Bush) (Signed 17-Feb-2021 09:43) Authored: History & Physical Reviewed, ERAS, Consent, Note Completion Last Updated: 17-Feb-2021 09:43 by Cam Bush) [facility] 01-27-2021 Note Post Operative Note: Post-Procedure Diagnosis: 1. Combined Form Age Related Cataract Left eye Procedure: 1. Cataract Extraction with Intraocular Lens Implant Left Eye Surgeon: Cam Bush MD Resident/Fellow/Other Feather Mixer: None Estimated Blood Loss (mL): none Specimen: no Findings: 1. Combined Form Age Related Cataract Left eye Operative Report Dictated: Dictation: not applicable - note contains Operative Report Operative Report: The patient was correctly identified in the preop area and the operative eye was marked with a marking pen. The operative eye was dilated in the preoperative area. The patient was then taken to the operating room where timeout was performed before starting the procedure. Combined anesthesia with intravenous sedation and topical tetracaine eyedrops were given the left eye. The patient was given a peribulbar block of 5cc 1% Lidocaine with Epinephrine. The operative eye was prepped and draped in the standard sterile ophthalmic fashion in preparation for ophthalmic surgery. A Anselmo wire speculum was then inserted between the eyelids of the left eye and the operating microscope was placed over the left eye. A paracentesis incision was made approximately 30 away from the planned surgical incision site with the help of MVR blade. 1% lidocaine MPF with Phenylephrine 1.5% PF was injected into the anterior chamber through the paracentesis incision. A near limbal clear corneal incision was fashioned in the temporal quadrant just outside the vascular arcade and Viscoat was injected into anterior chamber to firm the eye. A bent needle cystotome was used and Utrata forceps were utilized to create a continuous curvilinear capsulorrhexis. BSS was injected beneath the anterior capsule to hydrodissect the nucleus from adjacent cortex and capsule. The residual cortex were then aspirated with irrigation aspiration handpiece. The posterior capsule was then polished with the help of soft irrigation-aspiration tip. Provisc viscoelastic was then injected into the eye to reform the anterior chamber and to open the capsular bag. The intraocular lens implant was taken from its sterile wrapping, inspected under the surgical microscope and found to be in good condition. The intraocular lens implant 22.5D was injected into the capsule bag. The Provisc was then aspirated from the anterior chamber and from behind the intraocular lens implant. The anterior chamber was inflated with the help of BSS to moderate tension. The edges of the surgical incision were then hydrated with the help of BSS. Vigamox was then injected into the anterior chamber and into the capsule bag through the paracentesis incision. The surgical wound was then inspected and found to be watertight. The wire speculum and drapes were then removed. Pred Forte eyedrops, Acular eyedrops and Betadine 5% sterile ophthalmic solution were instilled in the conjunctival sac. The patient tolerated the procedure well and was taken to recovery room in stable condition. Attestation: Note Completion: Attending AttestationI performed the procedure without a resident Electronic Signatures: Cam Bush) (Signed 27-Jan-2021 11:15) Authored: Post Operative Note, Note Completion Last Updated: 27-Jan-2021 11:15 by Cam Bush) [facility] 01-27-2021 Note History & Physical R eviewed: I have reviewed the History and Physical dated: 22-Jan-2021 History and Physical reviewed and relevant findings noted. Patient examined to review pertinent physical findings.: No significant changes Home Medications Reviewed: no changes noted Allergies Reviewed: no changes noted ERAS (Enhanced Recovery After Surgery): ERAS Patient: no Consent: COVID-19 Consent: COVID-19 Risk ConsentSurgeon has reviewed licona risks related to the risk of chandler COVID-19 and if they contract COVID-19 what the risks are. Electronic Signatures: Cam Bush) (Signed 27-Jan-2021 09:05) Authored: History & Physical Reviewed, ERAS, Consent, Note Completion Last Updated: 27-Jan-2021 09:05 by Cam Bush) [facility] Evaluation note Diagnosis Polyarthralgia- Primary Pain in joint, multiple sites Primary osteoarthritis of left knee Primary localized osteoarthrosis, lower leg Chronic left shoulder pain Pain in joint, shoulder region Swelling of left wrist Generalized osteoarthritis Generalized osteoarthrosis, unspecified site documented in this encounter [facility] noteNo assessment information availableWSheltering Arms Hospital Work Phone: Evaluation note* Diagnosis Urinary retention Retention of urine, unspecified [facility] Dis[facility] instructionsAdditional Instructions Follow up with the urologist below as soon as possible for the urinary retention. Stop taking the prednisone for your knee. Your evaluation in the Emergency Department did not reveal any acute reason for admission. However, I want to emphasize that you may be early in the course of a disease process or illness even if it is not present. For this reason you should follow- up within 24 hours for reevaluation with either your primary care physician or if necessary back here in the Emergency Department. You should return to the Emergency Department immediately if your symptoms worsen or new symptoms develop.[facility] Work Phone: Reason for referral (narrative)No reason for referral information availableWSheltering Arms Hospital Work Phone: Summary Purpose Family History No Family History Records FoundNo Family History Records FoundNo Family History Records FoundNo Family History Records Found Advance Directives No Advanced Directives Records Found Advance Directive Response Recorded Date/ Time Do you have a Healthcare Power of Community Mental Health Worker? No December 24, 2024 8:16pm Chief Complaint and Reason for Visit Chief Complaint Admit Date gu complaint December 24, 2024 6: 37pm Additional Source Comments (unrecognized sect ion and content) No Status Records FoundNo Status Records FoundNo Status Records FoundNo Status Records Found INFORMATION SOURCE (unrecogn ized section and content) DATE CREATED AUTHOR 02/15/2021 [facility] DATE CREATED AUTHOR AUTHOR'S ORGANIZ ATION 02/23/2021 [facility] DATE CREATED AUTHOR AUTHOR'S ORGANIZ ATION 12/25/2024 [facility] DATE CREATED AUTHOR AUTHOR'S ORGANIZ ATION 12/26/2024 [facility] Source Comments (unrecognize d section and content) In the event this informatio n is protected by the Federal Confidentiality of Alcohol and Drug Abuse Patient Records regulations: The Federal rules restrict any use of the information to criminally investigate or prosecute any alcohol or drug abuse patient.[facility] the event this information is protected by the Federal Confidentiality of Alcohol and Drug Abuse Patient Records regulations: The Federal rules restrict any use of the information to criminally investigate or prosecute any alcohol or drug abuse patient.[facility] Center[facility] the event this information is protected by the Federal Confidentiality of Alcohol and Drug Abuse Patient Records regulations: The Federal rules restrict any use of the information to criminally investigate or prosecute any alcohol or drug abuse patient.[facility] Reason for Visit (unrecogniz ed section and content) Reason Comments Bilateral Knee Pain Referred by Rena carr Specialty Diagnoses / Procedures Referred By Sanam woody Referred To Contact Orthopedics Diagnoses Bilateral chronic knee pain Procedures [facility] 60 MINUTES Rena Kay APRN.[employer] FABRICATION SUPERVISOR [address] [place] [address] Phone: tel: fax: Referral ID Status Reason Start Date Expiration Date V isits Requested Visits Authorized [id number] Closed PCP Requested Referral 12/16/2024 12/16/2025 1 1 Care Teams (unrecognized sec tion and content) [employer] Supervisor Relationship Specialty Start Date End Date Luisa Buchanan MD [address] [place] [address] PCP - General Family Medicine 11/16/20 Daniel Coleman APRN.[employer]ING FABRICATION SUPERVISOR [address] [place] [address] Electrical Discharge Machine Operator Family Medicine 04/29/24 Team Status: Active Member Role/Relationship Status Dates No Primary Care Physician Primary Care Provider Active Team Status: Inactive Member Role/Relationship Status Dates Dr. Geraldine Viera MD Emergency Provider Active S tart: December 24, 2024 End: December 24, 2024 No Primary Care Physician Primary Care Provider Active Start: December 24, 2024 End: December 24, 2024 [employer] Supervisor Relationship Specialty Start Date End Date Luisa Buchanan MD [address] [place], [place] [id number] PCP - General Family Medicine 11/16/20 Daniel Coleman APRN.[employer]PER[employer]OR [address] [place], [place] [id number] [phone] Discharge Machine Operator Family Medicine 04/29/24 [employer] Supervisor Relationship Specialty Start Date End Date Luisa Buchanan MD [address] [place], [place] [id number] PCP - General Family Medicine 11/16/20 Daniel Coleman APRN.[employer] SUPERVISOR [address] [place], [place] [id number] Electrical Discharge Machine Operator Family Medicine 04/29/24 Goals (unrecognized section and content) Goals may be documented in a n alternate section FOR RECORDS PERTAINING TO PATIENTS WHO ARE OR HAVE BEEN ENROLLED IN A CHEMICAL DEPENDENCY/SUBSTANCEABUSE PROGRAM, SOME INFORMATION MAY BE OMITTED. This clinical summary was aggregated from multiple sources. Caution should be exercised in using it in the provision of clinical care. This summary normalizes information from multiple sources, and as a consequence, information in this document may materially change the coding, format and clinical context of patient data. In addition, data may be omitted in some cases. CLINICAL DECISIONS SHOULD BE BASED ON THE PRIMARY CLINICAL RECORDS. [employer] provides no warranty or guarantee of the accuracy or completeness of information in this document.
[2024-12-27 21:52] VITALS: BP 161/95; PULSE 84; RESP 15; O2SAT 100
--- NOTE | 2024-12-27 22:09 | EX.ED.GUMALE ---
HPI History of Present Illness Chief Complaint: Complaint Informant: patient and family Narrative Narrative: Patient is a 69-year-old male with history of recent urinary retention with Ascencio catheter placed yesterday. He has had increased pain as Ascencio catheter in his penis today and started having hematuria. Came in for further evaluation. Has emptied his Ascencio catheter 3 times a day and feels like it is draining appropriately. He feels however that his bladder is full. Is not on any blood thinners. No other complaints or concerns at this time. No fevers or chills reported. Otherwise doing well. Does plan to follow-up with [facility] this coming Sunday. PFSH PFS Medical History no medical history Home Medications ?Medication ?Instructions ?Recorded ?Last Taken ?Type naproxen 500 mg tablet 500 mg PO BID PRN PRN pain 12/24/24 Unknown History prednisone 10 mg tablet mg PO 12/24/24 Unknown History nitrofurantoin 100 mg PO Q12H 7 days #14 caps 12/27/24 Unknown Rx monohydrate/macrocrystals 100 mg capsule (Macrobid) phenazopyridine 200 mg tablet 200 mg PO TID PRN pain in bladder 12/27/24 Unknown Rx (Pyridium) #6 tabs Allergy/AdvReac Type Severity Reaction Status Date / Time No Known Allergies Allergy Verified 12/27/24 19:53 Family History no significant family his Surgical History no surgical history Social History Smoking Status: Never smoker ROS ROS ED Constitutional Constitutional ED: Denies chills or fever(s) Gastrointestinal Gastrointestinal: Reports abdominal pain and other Details: Suprapubic ; Denies vomiting Genitourinary Genitourinary ED: Reports dysuria, hematuria and other Details: Ascencio catheter in place Musculoskeletal Musculoskeletal: Denies arthralgias or myalgias Neurologic Neurologic: Denies weakness Hematologic/Lymphatic Hematologic/Lymphatic: Denies easy bleeding or easy bruising EXAM Physical Exam Const Vital Signs: 12/27/24 19:52 12/27/24 21:52 12/27/24 22:54 Temperature 98 F 98 F Temperature Source Temporal Pulse Rate 93 84 84 Respiratory Rate 18 15 15 Blood Pressure 171/103 H 161/95 H 161/95 H Blood Pressure Mean 125 117 117 Pulse Ox 98 100 100 Oxygen Delivery Method Room Air Room Air 12/27/24 23:00 Temperature Temperature Source Pulse Rate 82 Respiratory Rate Blood Pressure 148/79 H Blood Pressure Mean 102 Pulse Ox 99 Oxygen Delivery Method Room Air Positive well nourished and well developed General Appearance ED: well developed and NAD; Negative for pallor Resp normal respiratory effort Cardio regular rate and regular rhythm GI non-tender and non-distended Inspection: Negative for abdominal distention Auscultation: normoactive bowel sounds Palpation: soft; Negative for tender or guarding Narrative: Ascencio catheter in place. There is blood in the bag with no large clots. Extremity normal to inspection Neuro moves all extremities and no focal motor deficits Sensorium / Orientation: alert Motor Exam: no movement abnormalities noted Psych mental status grossly normal Skin General Skin Exam: Negative for pallor MDM MDM MDM Narrative Medical decision making narrative: Patient valuated for increasing suprapubic and penile pain as well as hematuria after having a Ascencio catheter placed on 12/24/2024. Differential includes Ascencio catheter malfunction, malpositioning, urinary tract infection and irritation of the urethra from the Ascencio placement itself. Bladder scan does not show any residual urine. Is been draining appropriately and the pain just started over the last 24 hours or so is a lower suspicion for malpositioning. Urinalysis shows greater than 100 red blood cells but does show 2+ bacteria. Will send for culture. Will be started empirically on prednisone to help with symptoms as well as antibiotics. Patient has naproxen to take as well for pain. Patient is given Uro-Jet applied locally around his urethra with some improvement of his pain. He is overall well-appearing. Spoke with patient using his daughter to interpret. He felt comfortable with this as well as his daughter. Patient denies any pain change with movement or walking. Patient given return precautions. Will follow-up with urology later this week. Discharged home in stable condition. Lab Data Labs: Laboratory Results - last 24 hr 12/27/24 22:05 Urine Color Lauren Urine Clarity Cloudy Urine pH 6.0 Ur Specific [place] 1.025 Urine Protein 100 H Urine Glucose (UA) Normal Urine Ketones Negative Urine Occult Blood 250 H Urine Nitrite Negative Urine Bilirubin Negative Urine Urobilinogen Normal Ur Leukocyte Esterase 25 H Urine RBC > 100 SEEN Urine WBC 0-5 SEEN Ur Squamous Epith Cells 0 SEEN Ur Transition Epith Cell 0-5 SEEN Urine Bacteria 2+ Urine Mucus 0 SEEN Discharge Plan Triage Chief Complaint: Complaint ED Provider: Mcihell Reid Dx/Rx/DC Orders Clinical Impression: Hematuria, Complication of Ascencio catheter, Pain in penis Instructions: ED Hematuria Prescriptions: New nitrofurantoin monohyd/m-cryst [Macrobid] 100 mg capsule 100 mg PO Q12H 7 Days Qty: 14 0RF Rx Instructions: must administer with a meal/food phenazopyridine [Pyridium] 200 mg tablet 200 mg PO TID PRN (Reason: pain in bladder ) Qty: 6 0RF No Action prednisone 10 mg tablet PO naproxen 500 mg tablet 500 mg PO BID PRN PRN (Reason: pain) Primary Care Provider: Care Physician,No Primary Referrals: Care Physician,No Primary [Primary Care Provider] - Activity Restrictions/Additional Instructions: Follow-up with your urologist next week as scheduled. Continue to push fluids to help encourage drainage from your bladder. You been given the remainder of numbing medication (Uro-Jet). Apply a small amount 3-4 times a day around the opening of your penis with the tubes going on to help with irritation and pain. If your Ascencio catheter stops draining, you develop a fever or if there are large clots coming out please return to the emergency room or call your urologist Print Language: Hong Konger Disposition Disposition: Home, Self Care Discharge Date/Time: 12/27/24 23:13
[2024-12-27 22:11] LABS: Mucous, Urine 0 SEEN /hpf (<or=2+)
[2024-12-27 22:18] LABS: Color, Urine Amber (Yellow); Glucose, Dipstick Normal (Normal); Ketone-Dipstick Negative (Negative); Leukocyte Esterase-Dipstick 25 /ul (Negative); Nitrite-Dipstick Negative (Negative); Occult Blood-Urine 250 /ul (Negative); Protein-Dipstick 100 mg/dl (Negative); Specific Gravity, Urine 1.025 (1.002-1.030); Urine Bilirubin Dipstick Negative (Negative)
[2024-12-27] MEDS: Lidocaine Jelly 2% 20 ML Syringe (URO-JET) 1 APPLIC TOPICAL (22:22)
[2024-12-27 22:26] LABS: Red Blood Cells-Urine > 100 SEEN /hpf (0-5); Squamous Epithelial Cells - UA 0 SEEN /hpf (0-5); Transitional Epithelial - Ur 0-5 SEEN /hpf (0-5)
[2024-12-27 22:54] VITALS: BP 161/95; PULSE 84; RESP 15; TEMP 36.6; O2SAT 100
[2024-12-27 23:00] VITALS: BP 148/79; PULSE 82; O2SAT 99
== END 2024-12-27 23:13 | disposition home or self-care (01) ==
PROVIDERS: Emergency Provider Emergency Medicine; Visit Provider Emergency Medicine
DX: T83.89XA Other specified complication of genitourinary prosthetic devices, implants and grafts, initial encounter (principal); X58.XXXA Exposure to other specified factors, initial encounter; N48.89 Other specified disorders of penis; R31.9 Hematuria, unspecified
CPT/HCPCS: 81001; 87086; 99282